=== PATIENT | female | born 1930 | race Caucasian/White ===

== ENCOUNTER → 2016-12-30 | Outpatient (CLI) | payer MEDICARE, OTHER ==
[2016-10-02 12:03] VITALS: BP 160/68
[~2016-12-30] MED LIST: ALBU18HF IH; AMIT10TA PO; AZIT250T6 PO; CHOL4POW2 PO; CLON0.5T PO; CYCL1DRO EACHEYE; CYCL5TAB PO; DOCU-27 PO; HYDR-2680 PO; HYDR-2762 PO; IPRA3AMP NEB; MINE454C6 TP; MOME15CR13 TP; OLAN2.5T3 PO; PRED-220 PO; SERT25TA PO; TRAZ50TA15 PO
--- NOTE | 2016-12-30 17:27 | RAD ---
5 view lumbar spine radiographs 12/30/2016 Clinical history: Low back pain for 2 weeks. AP, 2 lateral and bilateral oblique digital radiographs of lumbar spine were obtained. There is diffuse osteopenia the visualized bony structures. Surgical clips are seen within the right upper quadrant of the abdomen consistent with a cholecystectomy. Minimal S shaped curvature of the thoracolumbar spine is seen. Degenerative changes are seen along the lower thoracic and throughout the lumbar disc spaces consisting of vertebral endplate sclerosis and minimal to mild anterior vertebral body osteophyte formation. Degenerative changes are seen involving the facet joints of the mid and lower lumbar spine. No acute fracture or subluxation is seen. Atherosclerotic calcification of the abdominal aorta is noted. Impression: Degenerative changes are seen involving the lower thoracic and throughout the lumbar spine. No acute osseous abnormality is seen.
--- NOTE | 2016-12-30 17:46 | RAD ---
Three-view cervical spine radiographs 12/30/2016 Clinical history: Neck pain for 2 weeks. AP, lateral, swimmer's lateral and AP open mouth odontoid radiographs of the cervical spine were obtained. There is diffuse osteopenia the visualized bony structures. Straightening of the normal cervical lordosis is seen. Degenerative changes consisting of vertebral endplate sclerosis and mild to moderate anterior vertebral body osteophyte formation is seen throughout the cervical disc spaces. Degenerative changes are seen involving the uncovertebral and facet joints throughout the cervical disc spaces. No fracture or subluxation is seen. No prevertebral soft tissue swelling is noted. Impression: Degenerative changes are seen throughout the cervical spine as outlined above. No acute osseous abnormality is seen.
== END | disposition home or self-care (01) ==
LOC: DXRADRC 14:45
PROVIDERS: ATTEND Physician Assistant
DX: M47.896 Other spondylosis, lumbar region (principal); M47.812 Spondylosis without myelopathy or radiculopathy, cervical region; M85.80 Other specified disorders of bone density and structure, unspecified site; M25.78 Osteophyte, vertebrae; M47.894 Other spondylosis, thoracic region
CPT/HCPCS: 72040; 72110

== ENCOUNTER → 2017-05-06 | Outpatient (CLI) | payer MEDICARE, OTHER ==
[2016-10-02 12:03] VITALS: BP 160/68
[~2017-05-06] MED LIST changes: +DOCU-109 PO; -DOCU-27 PO
--- NOTE | 2017-05-06 16:23 | RAD ---
Bilateral lower extremity arterial ultrasound with STU measurements, 05/06/2017: History: Cold feet, claudication Duplex evaluation of the major arteries in both lower extremities was performed including grayscale, color-flow and spectral Doppler analysis. There are mild scattered atherosclerotic plaques. On the right, there are triphasic Doppler waveforms at the common femoral, superficial femoral and popliteal artery levels. No significant velocity acceleration is seen in those regions to suggest high-grade stenosis. Patent posterior tibial, peroneal and anterior tibial arteries are present in the right lower leg demonstrating biphasic and triphasic Doppler waveforms. The right dorsalis pedis artery demonstrates a good biphasic Doppler waveform. A normal resting STU measurement of 1.03 was obtained on the right. On the left, there are biphasic Doppler waveforms in the common femoral, superficial femoral and popliteal arteries. No significant velocity acceleration is seen through these regions to suggest significant stenosis. Biphasic Doppler waveforms are evident in the left posterior tibial, peroneal, anterior tibial and dorsalis pedis arteries. A normal resting STU measurement of 1.11 was obtained on the left. IMPRESSION: 1. Mild scattered atherosclerotic plaquing without evidence of significant arterial occlusive disease in either lower extremity. 2. Normal bilateral resting STU measurements.
== END | disposition home or self-care (01) ==
LOC: US 12:54
PROVIDERS: ATTEND Physician Assistant
DX: M79.661 Pain in right lower leg (principal); M79.662 Pain in left lower leg; I70.0 Atherosclerosis of aorta
CPT/HCPCS: 93922; 93923

== ENCOUNTER 2017-12-16 16:33 | Inpatient (IN) | payer MEDICARE, OTHER ==
[~2017-12-16] VITALS: Ht 162.6 cm; Wt 55.5 kg
[~2017-12-16 16:33] MED LIST changes: +AMIT50TA PO; +ENOX40DI SQ; +FERR325T14 PO; +GABA-586 PO; +HYDR-963 PO; +LACT1CAP21 PO; +POLY17PO5 PO; +QUET200T4 PO; +TEMA15CA6 PO; +VANC1PLA15 IV
--- NOTE | 2017-12-16 17:12 | NUR ---
Swing bed admission note: PT [facility] for IVAB r/t pneumonia, PT/OT strengthening for weakness and weight loss. See completed assessment per flow sheet PT depressed and is isolated to room, pt states that she just feels 'bad' Pt has lower back pain, Kpad at bedside and PRN pain medications Respiratory- home oxygen 2L NC Skin- friable and bruised ADL- Patient requires stand by assistance with toileting and uses walker for ADL. PT is too weak to dress self at this time and refused PT/OT as inpatient today and will resume tomorrow as skilled patient. PT/OT notified of orders Desiree Gutierrez [employer] CMSRN SD-
[2017-12-16] MEDS: QUEtiapine 50 MG TABLET. PO SCH ×2 (17:30→20:11)
[2017-12-16] MEDS ORDERED: PIPERACILLIN/TAZOBACTAM 3.375 GM in IV NORMAL SALINE 50ML 50 ML IV SCH (18:00)
[2017-12-16 19:03] VITALS: BP 89/60
[2017-12-16] MEDS: cycloSPORINE 0.05% OPTH 1 DROP DROPERETTE OU SCH (20:09)
[2017-12-16] MEDS: CELECOXIB 100 MG CAPSULE PO SCH (20:11)
[2017-12-16] MEDS: GABAPENTIN 300 MG CAPSULE. PO SCH (20:11)
[2017-12-16] MEDS: VANCOMYCIN 1 GM in IV NORMAL SALINE 250ML 250 ML IV SCH (20:11)
[2017-12-16] MEDS: LACTOBACILLUS RHAMNOSUS GG 1 CAPSULE. PO SCH (20:11)
[2017-12-16] MEDS: TEMAZEPAM 15 MG CAPSULE PO SCH (20:11)
[2017-12-16 20:28] VITALS: BP 120/51
[2017-12-16] MEDS ORDERED: OLANZapine 5 MG TABLET PO PRN (21:00)
[2017-12-16] MEDS: IPRATRPIUM/ALBUTEROL 0.5/2.5MG 3 ML NEBU. NEB SCH (22:35)
[2017-12-17] MEDS: PIPERACILLIN/TAZOBACTAM 3.375 GM in IV NORMAL SALINE 50ML 50 ML IV SCH ×4 (02:27→19:51)
--- NOTE | 2017-12-17 04:37 | NUR ---
Swing Bed Nursing Note Patient Handbook for [facility] given to patient. Nursing Problem: Patient admitted to Swing Bed Unit for IV antibiotics r/t pneumonia, PT/OT strengthening for weakness and weight loss. Pt lives at home alone, family is involved. Cognitive/Behavioral: Pt is A/Ox3. Pt sitting propped up in bed with daughter at bedside. Flat affect, depressed. States, "I still just feel bad." Cooperative with all meds and cares. Pain: Pt c/o joint and lower back pain. Kpad in place to lower back. Received new scheduled Celebrex with HS meds for arthritis pain. Pt much more comfortable. Able to rest through noc. Respiratory Status: Lung sounds diminished, right side coarse. Non-prod cough. Pt is on 2-3L O2 via NC continuously. Pt wears home O2. SOA with exertion. HOB is elevated. Duonebs QID. Skin: Thin, fragile/friable. Bruising to extremities. Coccyx intact. Bowel/Bladder Continence: Pt is continent of bowel and bladder. LBM 12/16. Has had loose stools. ADL Functional Status: Pt requires standby assistance with toileting and uses walker for ADL. Pt is too weak to dress self at this time. Feeds self, tolerated HS snack well. Able to take meds whole, one at a time.
[2017-12-17 05:49] VITALS: BP 113/50
[2017-12-17] MEDS: IPRATRPIUM/ALBUTEROL 0.5/2.5MG 3 ML NEBU. NEB SCH ×4 (05:49→21:16)
[2017-12-17 06:03] LABS: BASO # 0.1 x10^3/uL (0.0-0.2); BASO % 1 % (0-3); EOS # 0.3 x10^3/uL (0.0-0.7); EOS % 2 % (0-3); HEMATOCRIT 30.8 % (36.0-47.0); HEMOGLOBIN 10.4 g/dL (12.0-15.5); LYMPH # 2.1 x10^3/uL (1.0-4.8); LYMPH % 15 % (24-48); MEAN CORPUSCULAR HEMOGLOBIN 32 pg (25-35); MEAN CORPUSCULAR HGB CONC 34 g/dL (31-37); MEAN CORPUSCULAR VOLUME 94 fL (79-100); MONO # 1.2 x10^3/uL (0.0-1.1); MONO % 9 % (0-9); NEUT # 10.3 x10^3uL (1.8-7.7); NEUT % 74 % (31-73); PLATELET COUNT 612 x10^3/uL (140-400); RED BLOOD COUNT 3.28 x10^6/uL (3.50-5.40)
[2017-12-17 06:19] LABS: CALCIUM 8.8 mg/dL (8.5-10.1); CREATININE 0.8 mg/dL (0.6-1.0); GFR 68.2; POTASSIUM 4.6 mmol/L (3.5-5.1)
[2017-12-17] MEDS ORDERED: VANCOMYCIN IV SCH (09:00)
[2017-12-17] MEDS ORDERED: POLYETHYLENE GLYCOL 3350 17 GM PACKET. PO SCH (09:00)
[2017-12-17] MEDS ORDERED: SOD CHLORIDE IV SCH (09:00)
[2017-12-17] MEDS ORDERED: AZITHROMYCIN 250 MG TABLET. PO SCH (09:00)
[2017-12-17 09:06] LABS: % BANDS 3 % (0-9); % EOS 1 % (0-5); % LYMPHS 30 % (24-48); % METAS 2 % (0-0); % MONOS 7 % (0-10); % SEGS 54 % (35-66); PLATELET CLUMP PRESENT; PLT ESTIMATE INCREASED (ADEQUATE)
[2017-12-17 09:07] LABS: POLYCHROMASIA SLIGHT; TOXIC GRANULATION SLIGHT
[2017-12-17] MEDS: cycloSPORINE 0.05% OPTH 1 DROP DROPERETTE OU SCH ×2 (09:46→21:07)
[2017-12-17] MEDS: LACTOBACILLUS RHAMNOSUS GG 1 CAPSULE. PO SCH ×2 (09:46→21:06)
[2017-12-17] MEDS: GABAPENTIN 300 MG CAPSULE. PO SCH ×3 (09:46→21:06)
[2017-12-17] MEDS: CELECOXIB 100 MG CAPSULE PO SCH ×2 (09:46→17:36)
[2017-12-17] MEDS: FERROUS SULFATE 325 MG TABLET. PO SCH (09:46)
[2017-12-17] MEDS: ENOXAPARIN 40 MG/0.4 ML DISP.SYRIN. SQ SCH (09:47)
[2017-12-17] MEDS: HYDROcodone/APAP 7.5/325MG 1 TAB TABLET PO PRN ×2 (13:50→19:51)
--- NOTE | 2017-12-17 15:42 | NUR ---
Swing Bed Nursing Note Patient Handbook for Assisted given to patient. Nursing Problem: Patient admitted to [facility] for PT/OT for generalized strengthening subsequent to pneumonia. Cognitive/Behavioral: Patient is A/O x4. Patient is pleasant and cooperative with all cares. Patient appears to be somewhat depressed. Psych consult with Dr. Maya ordered. Pain: Patient is experiencing great pain this shift. Lortab administered and was ineffective. Fentanyl administered with some improvement. Respiratory Status: Patient on 2L O2 continuous. Skin: Patient's coccyx intact as is all other skin. Skin is thin and friable. Bowel/Bladder Continence: Patient is continent of bowel and bladder. ADL Functional Status: Patient eats and moves in bed independently with set-up help only. Patient requires one person assist with all other ADLs.
[2017-12-17 18:15] VITALS: BP 108/66
--- NOTE | 2017-12-17 19:30 | NUR ---
Swing Bed Nursing Note Patient Handbook for [facility] given to patient. Nursing Problem: Patient admitted to Swing Bed Unit for IV antibiotics r/t pneumonia, PT/OT strengthening for weakness and weight loss. Pt lives at home alone, family is involved. Cognitive/Behavioral: Pt is A/Ox3. Pt sitting propped up in bed with daughter at bedside. Cooperative with all meds and cares. Pain: Pt c/o joint and lower back pain. Kpad in place to lower back. Given PRN Lortab. Pt much more comfortable. Able to rest through noc. Respiratory Status: Lung sounds diminished, right side coarse. Non-prod cough. Pt is on 2 O2 via NC continuously. Pt wears home O2. SOA with exertion. HOB is elevated. Duonebs QID. Skin: Thin, fragile/friable. Bruising to extremities. Coccyx intact. Bowel/Bladder Continence: Pt is continent of bowel and bladder. LBM 12/17. Has had loose stools. ADL Functional Status: Pt requires standby assistance with toileting and uses walker for ADL. Pt is too weak to dress self at this time. Feeds self, tolerated HS snack well. Able to take meds whole, one at a time.
[2017-12-17] MEDS: QUEtiapine 50 MG TABLET. PO SCH (21:07)
[2017-12-17] MEDS: TEMAZEPAM 15 MG CAPSULE PO SCH (21:07)
[2017-12-17 21:10] LABS: VANC TR 10.6 mcg/mL (10.0-20.0)
[2017-12-17] MEDS: VANCOMYCIN 1 GM in IV NORMAL SALINE 250ML 250 ML IV SCH (21:18)
[2017-12-17] MEDS ORDERED: VANCOMYCIN 1 GM in IV NORMAL SALINE 250ML 250 ML IV SCH (21:30)
[2017-12-17] MEDS: VANCOMYCIN PER PHARMACY MC PRN (21:36)
--- NOTE | 2017-12-17 21:36 | NUR ---
Pharmacy Vancomycin Dosing Note S:Consulted to monitor and dose vancomycin started 12/15/17. O:EDGARD ORTIZ is a 87 year old F with Pneumonia . Height: 5 feet, 4 inches Weight: 56.274401 kg [place] Body Weight: Adjusted Body Weight: Dosing Weight: Actual Other Antibiotics: ZOSYN 3.375GM Q6HRS LABS: Last BUN: 9 Last Creatinine: 0.8 Creatinine Clearance: Last WBC: 14 Last Platelets: 612 Tmax (past 24 hours): Microbiology: I/O: Drug Levels: Last Trough level: 10.6 on 12/17/17 at 2030 Last dose given 12/17/17 at 2117 Vancomycin Dosing: Loading Dose: 1500 mg x1 Dosing Weight: Actual Target Trough: 15-20 A: Based on: P: 1. Change to Vancomycin 1000 mg IV q12h from q24hrs 2. Follow up Trough level on 12/18/17 at 2030 3. Pharmacy will continue to monitor, follow and adjust therapy as needed. JOAN DÍAZ [facility], 12/17/17 [id number]
[2017-12-18] MEDS: PIPERACILLIN/TAZOBACTAM 3.375 GM in IV NORMAL SALINE 50ML 50 ML IV SCH ×4 (01:46→19:22)
[2017-12-18] MEDS: HYDROcodone/APAP 7.5/325MG 1 TAB TABLET PO PRN ×3 (01:55→19:21)
[2017-12-18] MEDS: IPRATRPIUM/ALBUTEROL 0.5/2.5MG 3 ML NEBU. NEB SCH ×4 (05:52→20:15)
[2017-12-18 06:00] VITALS: BP 90/54
[2017-12-18] MEDS: CELECOXIB 100 MG CAPSULE PO SCH ×2 (08:32→17:26)
[2017-12-18] MEDS: cycloSPORINE 0.05% OPTH 1 DROP DROPERETTE OU SCH ×2 (08:32→19:21)
[2017-12-18] MEDS: GABAPENTIN 300 MG CAPSULE. PO SCH ×3 (08:32→19:21)
[2017-12-18] MEDS: LACTOBACILLUS RHAMNOSUS GG 1 CAPSULE. PO SCH ×2 (08:32→19:21)
[2017-12-18] MEDS: FERROUS SULFATE 325 MG TABLET. PO SCH (08:32)
[2017-12-18] MEDS: POLYETHYLENE GLYCOL 3350 17 GM PACKET. PO SCH (08:37)
[2017-12-18] MEDS: ENOXAPARIN 40 MG/0.4 ML DISP.SYRIN. SQ SCH (08:40)
[2017-12-18] MEDS: VANCOMYCIN 1 GM in IV NORMAL SALINE 250ML 250 ML IV SCH ×2 (10:37→20:55)
--- NOTE | 2017-12-18 15:55 | PDOC ---
Exam Note: Maximilian Note: Please also refer to the separate dictated note~for this date of service dictated separately.~Patient seen individually. Discussed the patient with Nursing staff reviewed the chart.~Reviewed interim history and current functioning. Reviewed vital signs,~Labs/ Radiology~and current medications noted below. Continue current treatment with the changes noted in the dictated addendum note. This is a late entry for date of service Dec 17, 2017 Assessment: Vital Signs: VS - Last 72 Hours, by Label Date Time Temp Pulse Resp B/P (MAP) Pulse Ox O2 Delivery O2 Flow Rate FiO2 12/18/17 13:53 98 Nasal Cannula 2.0 12/18/17 12:40 98 Nasal Cannula 2.0 12/18/17 10:51 98 Nasal Cannula 2.0 12/18/17 08:00 Nasal Cannula 2.0 12/18/17 06:00 97.3 71 18 90/54 (66) 99 Nasal Cannula 3.0 12/18/17 05:54 95 Nasal Cannula 2.0 12/18/17 01:55 18 Nasal Cannula 12/17/17 23:10 18 Nasal Cannula 2.0 12/17/17 22:23 22 Nasal Cannula 12/17/17 21:08 18 12/17/17 20:24 97 Nasal Cannula 2.0 12/17/17 19:51 20 Nasal Cannula 2.0 12/17/17 19:30 Nasal Cannula 2.0 12/17/17 18:15 97.4 89 20 108/66 (80) 97 Nasal Cannula 2.0 12/17/17 16:42 95 Nasal Cannula 2.0 12/17/17 11:37 100 Nasal Cannula 2.0 12/17/17 08:00 Nasal Cannula 3.0 12/17/17 05:49 97.7 87 18 113/50 (71) 99 Nasal Cannula 2.0 12/17/17 05:30 94 Nasal Cannula 2.5 12/16/17 20:40 96 Nasal Cannula 2.5 12/16/17 20:28 88 120/51 (74) 12/16/17 20:00 Nasal Cannula 3.0 12/16/17 19:03 98.1 93 21 89/60 (70) 97 Nasal Cannula 2.0 12/16/17 18:28 Nasal Cannula Vital Signs Date Time Temp Pulse Resp B/P (MAP) Pulse Ox O2 Delivery O2 Flow Rate FiO2 12/18/17 13:53 98 Nasal Cannula 2.0 12/18/17 06:00 97.3 71 18 90/54 (66) I&O Intake and Output 12/18/17 07:00 Intake Total 1720 ml Balance 1720 ml Intake Oral 1420 ml IV Total 300 ml # Voids 6 # Bowel Movements 1 Labs: Laboratory Tests Test 12/17/17 20:35 Vancomycin Level Trough 10.6 mcg/mL (10.0-20.0) Vancomycin Last Dose Date 12/16/17 Vancomycin Last Dose Time 2100 Current Medications: Meds: Current Medications Azithromycin (Zithromax) 500 mg DAILY PO ; Start 12/17/17 at 09:00; Status Cancel Cyclosporine (Restasis) 1 drop BID OU Last administered on 12/18/17 08:32; Start 12/16/17 at 21:00 Enoxaparin Sodium (Lovenox) 40 mg DAILY SQ Last administered on 12/18/17 08:40 ; Start 12/17/17 at 09:00 Ferrous Sulfate (Feosol) 325 mg DAILY PO Last administered on 12/18/17 08:32; Start 12/17/17 at 09:00 Gabapentin (Neurontin) 300 mg TID PO Last administered on 12/18/17 13:46; Start 12/16/17 at 21:00 Acetaminophen/ Hydrocodone Bitart (Lortab 7.5/325) 1 tab Q6HRS PRN PO PAIN Last administered on 12/18/17 12:40; Start 12/16/17 at 17:15 Albuterol/ Ipratropium (Duoneb) 3 ml QID NEB Last administered on 12/18/17at 10: 51; Start 12/16/17 at 21:00 Olanzapine (ZyPREXA) 5 mg PRN QHS PRN PO PSYCHOSIS; Start 12/16/17 at 21:00 Polyethylene Glycol (miraLAX) 17 gm DAILY PO ; Start 12/17/17 at 09:00; Stop at 09:00; Status DC Temazepam (Restoril) 15 mg QHS PO Last administered on 12/17/17 21:07; Start 12/16/17 at 21:00 Lactobacillus Rhamnosus (Culturelle) 1 cap BID PO Last administered on 08:32; Start 12/16/17 at 21:00 Quetiapine Fumarate (SEROquel) 50 mg QHS PO Last administered on 12/17/17 21: 07; Start 12/16/17 at 17:30 Non-Formulary Medication (Vancomycin/0.9 % Sod Chloride (Vanco 1 Gram/150 ml-0.9 % NaCl)) 1 gm DAILY IV ; Start 12/17/17 at 09:00; Status UNV Vancomycin HCl 1 gm/Sodium Chloride 250 ml @ 250 mls/hr Q24H IV Last administered on 12/17/17 21:18; Start 12/16/17 at 21:00; Stop 12/17/17 at 21:22 ; Status DC Vancomycin HCl (Vanco Per Pharmacy) 1 each PRN DAILY PRN MC SEE COMMENTS Last administered on 12/17/17at 21:36; Start 12/16/17 at 17:30 Fentanyl Citrate (Fentanyl 2ml Vial) 50 mcg PRN Q2HR PRN IV PAIN; Start at 17:30 Fentanyl Citrate (Fentanyl 2ml Vial) 25 mcg PRN Q2HR PRN IV pain Last administered on 12/17/17at 22:23; Start 12/16/17 at 17:45 Polyethylene Glycol (miraLAX) 17 gm Q48H PO Last administered on 12/18/17 08: 37; Start 12/18/17 at 09:00 Piperacillin Sod/ Tazobactam Sod 3.375 gm/Sodium Chloride 50 ml @ 100 mls/hr Q6HRS IV Last administered on 12/16/17 18:00; Start 12/16/17 at 18:00; Stop at 20:50; Status DC Celecoxib (CeleBREX) 100 mg BIDWMEALS PO Last administered on 12/18/17 08:32; Start 12/16/17 at 20:00 Piperacillin Sod/ Tazobactam Sod 3.375 gm/Sodium Chloride 50 ml @ 100 mls/hr Q6H IV Last administered on 12/18/17at 13:47; Start 12/17/17 at 02:00 Vancomycin HCl (Vancomycin Trough Level) 1 each 1X ONCE MC Last administered on 12/17/17 20:30; Start 12/17/17 at 20:30; Stop 12/17/17 at 20:31; Status DC Vancomycin HCl 1 gm/Sodium Chloride 250 ml @ 250 mls/hr Q12H IV ; Start at 21:30; Stop 12/17/17 at 21:30; Status DC Vancomycin HCl 1 gm/Sodium Chloride 250 ml @ 250 mls/hr Q12H IV Last administered on 12/18/17at 10:37; Start 12/18/17 at 09:00 Vancomycin HCl (Vancomycin Trough Level) 1 each 1X ONCE MC ; Start 12/18/17 at 20:30; Stop 12/18/17 at 20:31 Active Scripts Active Duoneb 0.5-3(2.5) Mg/3 Ml (Albuterol/Ipratropium) 3 Ml Ampul.neb 3 Ml NEB QID Azithromycin Tablet (Azithromycin) 250 Mg Tablet 500 Mg PO DAILY Reported Vanco 1 Gram/150 ml-0.9% NaCl (Vancomycin/0.9 % Sod Chloride) 1 Gm/150 Ml Plast..bag 1 Gm IV DAILY Restoril (Temazepam) 15 Mg Capsule 1 Cap PO QHS Miralax (Polyethylene Glycol 3350) 17 Gm Powd.pack 1 Packet PO DAILY Culturelle (Lactobacillus Rhamnosus Gg) 1 Each Capsule 1 Each PO BID Ferrous Sulfate 325 Mg Tablet 1 Tab PO DAILY Lovenox (Enoxaparin Sodium) 40 Mg/0.4 Ml Disp.syrin 40 Mg SQ DAILY Restasis (Cyclosporine) 1 Each Droperette 1 Drop EACHEYE BID Gabapentin 300 Mg Capsule 300 Mg PO TID Seroquel (Quetiapine Fumarate) 200 Mg Tablet 2 Tab PO QHS Hydrocodone-Apap 7.5-325 (Hydrocodone Bit/Acetaminophen) 1 Each Tablet 1 Tab PO Q6HRS PRN Zyprexa (Olanzapine) 2.5 Mg Tablet 5 Tab PO QHS I have reviewed the current psychotropics carefully including drug interactions. Risk benefit ratio favors no change other than as noted in my dictated progress note. Diagnosis: Problems: (1) Major depressive disorder, recurrent episode (2) Anxiety disorder SOFÍA PARRA MD Dec 18, 2017 15:55
--- NOTE | 2017-12-18 16:25 | NUR ---
Swing Bed Nursing Note Nursing Problem: Patient admitted to Swing Bed Unit for IV antibiotics r/t pneumonia, PT/OT strengthening for weakness and weight loss. Pt lives at home alone, family is involved. Cognitive/Behavioral: Pt is A/Ox3. Cooperative with all meds and cares. Pain: Pt c/o joint and lower back pain. Given PRN Lortab. Pt much more comfortable. Able to rest through noc. Respiratory Status: Lung sounds diminished, right side coarse. Non-prod cough. Pt is on 2L O2 via NC continuously. Pt wears home O2. SOA with exertion. HOB is elevated. Duonebs QID. Skin: Thin, fragile/friable. Bruising to extremities. Coccyx intact. Bowel/Bladder Continence: Pt is continent of bowel and bladder. LBM 12/18. Has had loose stools. ADL Functional Status: Pt requires standby assistance with toileting and uses walker for ADL. Feeds self, tolerated HS snack well. Able to take meds whole, one at a time.
--- NOTE | 2017-12-18 17:33 | PDOC ---
Exam Note: Maximilian Note: Please also refer to the separate dictated note~for this date of service dictated separately.~Patient seen individually. Discussed the patient with Nursing staff reviewed the chart.~Reviewed interim history and current functioning. Reviewed vital signs,~Labs/ Radiology~and current medications noted below. Continue current treatment with the changes noted in the dictated addendum note Assessment: Vital Signs: Vital Signs Date Time Temp Pulse Resp B/P (MAP) Pulse Ox O2 Delivery O2 Flow Rate FiO2 12/18/17 16:37 99 Nasal Cannula 2.0 12/18/17 06:00 97.3 71 18 90/54 (66) I&O Intake and Output 12/18/17 07:00 Intake Total 1720 ml Balance 1720 ml Intake Oral 1420 ml IV Total 300 ml # Voids 6 # Bowel Movements 1 Labs: Laboratory Tests Test 12/17/17 20:35 Vancomycin Level Trough 10.6 mcg/mL (10.0-20.0) Vancomycin Last Dose Date 12/16/17 Vancomycin Last Dose Time 2100 Current Medications: Meds: Current Medications Azithromycin (Zithromax) 500 mg DAILY PO ; Start 12/17/17 at 09:00; Status Cancel Cyclosporine (Restasis) 1 drop BID OU Last administered on 12/18/17at 08:32; Start 12/16/17 at 21:00 Enoxaparin Sodium (Lovenox) 40 mg DAILY SQ Last administered on 12/18/17at 08:40 ; Start 12/17/17 at 09:00 Ferrous Sulfate (Feosol) 325 mg DAILY PO Last administered on 12/18/17at 08:32; Start 12/17/17 at 09:00 Gabapentin (Neurontin) 300 mg TID PO Last administered on 12/18/17at 13:46; Start 12/16/17 at 21:00 Acetaminophen/ Hydrocodone Bitart (Lortab 7.5/325) 1 tab Q6HRS PRN PO PAIN Last administered on 12/18/17 12:40; Start 12/16/17 at 17:15 Albuterol/ Ipratropium (Duoneb) 3 ml QID NEB Last administered on 12/18/17at 16: 37; Start 12/16/17 at 21:00 Olanzapine (ZyPREXA) 5 mg PRN QHS PRN PO PSYCHOSIS; Start 12/16/17 at 21:00 Polyethylene Glycol (miraLAX) 17 gm DAILY PO ; Start 12/17/17 at 09:00; Stop at 09:00; Status DC Temazepam (Restoril) 15 mg QHS PO Last administered on 12/17/17at 21:07; Start 12/16/17 at 21:00 Lactobacillus Rhamnosus (Culturelle) 1 cap BID PO Last administered on at 08:32; Start 12/16/17 at 21:00 Quetiapine Fumarate (SEROquel) 50 mg QHS PO Last administered on 12/17/17at 21: 07; Start 12/16/17 at 17:30 Non-Formulary Medication (Vancomycin/0.9 % Sod Chloride (Vanco 1 Gram/150 ml-0.9 % NaCl)) 1 gm DAILY IV ; Start 12/17/17 at 09:00; Status UNV Vancomycin HCl 1 gm/Sodium Chloride 250 ml @ 250 mls/hr Q24H IV Last administered on 12/17/17at 21:18; Start 12/16/17 at 21:00; Stop 12/17/17 at 21:22 ; Status DC Vancomycin HCl (Vanco Per Pharmacy) 1 each PRN DAILY PRN MC SEE COMMENTS Last administered on 12/17/17at 21:36; Start 12/16/17 at 17:30 Fentanyl Citrate (Fentanyl 2ml Vial) 50 mcg PRN Q2HR PRN IV PAIN; Start at 17:30 Fentanyl Citrate (Fentanyl 2ml Vial) 25 mcg PRN Q2HR PRN IV pain Last administered on 12/17/17at 22:23; Start 12/16/17 at 17:45 Polyethylene Glycol (miraLAX) 17 gm Q48H PO Last administered on 12/18/17at 08: 37; Start 12/18/17 at 09:00 Piperacillin Sod/ Tazobactam Sod 3.375 gm/Sodium Chloride 50 ml @ 100 mls/hr Q6HRS IV Last administered on 12/16/17at 18:00; Start 12/16/17 at 18:00; Stop at 20:50; Status DC Celecoxib (CeleBREX) 100 mg BIDWMEALS PO Last administered on 12/18/17at 17:26; Start 12/16/17 at 20:00 Piperacillin Sod/ Tazobactam Sod 3.375 gm/Sodium Chloride 50 ml @ 100 mls/hr Q6H IV Last administered on 12/18/17at 13:47; Start 12/17/17 at 02:00 Vancomycin HCl (Vancomycin Trough Level) 1 each 1X ONCE MC Last administered on 12/17/17at 20:30; Start 12/17/17 at 20:30; Stop 12/17/17 at 20:31; Status DC Vancomycin HCl 1 gm/Sodium Chloride 250 ml @ 250 mls/hr Q12H IV ; Start at 21:30; Stop 12/17/17 at 21:30; Status DC Vancomycin HCl 1 gm/Sodium Chloride 250 ml @ 250 mls/hr Q12H IV Last administered on 12/18/17at 10:37; Start 12/18/17 at 09:00 Vancomycin HCl (Vancomycin Trough Level) 1 each 1X ONCE MC ; Start 12/18/17 at 20:30; Stop 12/18/17 at 20:31 Duloxetine HCl (Cymbalta) 30 mg DAILY PO ; Start 12/19/17 at 09:00 Active Scripts Active Duoneb 0.5-3(2.5) Mg/3 Ml (Albuterol/Ipratropium) 3 Ml Ampul.neb 3 Ml NEB QID Azithromycin Tablet (Azithromycin) 250 Mg Tablet 500 Mg PO DAILY Reported Vanco 1 Gram/150 ml-0.9% NaCl (Vancomycin/0.9 % Sod Chloride) 1 Gm/150 Ml Plast..bag 1 Gm IV DAILY Restoril (Temazepam) 15 Mg Capsule 1 Cap PO QHS Miralax (Polyethylene Glycol 3350) 17 Gm Powd.pack 1 Packet PO DAILY Culturelle (Lactobacillus Rhamnosus Gg) 1 Each Capsule 1 Each PO BID Ferrous Sulfate 325 Mg Tablet 1 Tab PO DAILY Lovenox (Enoxaparin Sodium) 40 Mg/0.4 Ml Disp.syrin 40 Mg SQ DAILY Restasis (Cyclosporine) 1 Each Droperette 1 Drop EACHEYE BID Gabapentin 300 Mg Capsule 300 Mg PO TID Seroquel (Quetiapine Fumarate) 200 Mg Tablet 2 Tab PO QHS Hydrocodone-Apap 7.5-325 (Hydrocodone Bit/Acetaminophen) 1 Each Tablet 1 Tab PO Q6HRS PRN Zyprexa (Olanzapine) 2.5 Mg Tablet 5 Tab PO QHS I have reviewed the current psychotropics carefully including drug interactions. Risk benefit ratio favors no change other than as noted in my dictated progress note. Diagnosis: Problems: (1) Major depressive disorder, recurrent episode (2) Anxiety disorder SOFÍA PARRA MD Dec 18, 2017 17:33
[2017-12-18 18:28] VITALS: BP 102/65
[2017-12-18] MEDS: QUEtiapine 50 MG TABLET. PO SCH (19:21)
[2017-12-18] MEDS: TEMAZEPAM 15 MG CAPSULE PO SCH (19:21)
[2017-12-18 20:47] LABS: VANC TR 21.8 mcg/mL (10.0-20.0)
[2017-12-18] MEDS ORDERED: VANCOMYCIN 750 MG in IV NORMAL SALINE 250ML 250 ML IV SCH (21:00)
[2017-12-18] MEDS: VANCOMYCIN PER PHARMACY MC PRN (21:16)
--- NOTE | 2017-12-18 21:17 | NUR ---
Pharmacy Vancomycin Dosing Note S:Consulted to monitor and dose vancomycin started 12/15/17. O:EDGARD ORTIZ is a 87 year old F with Pneumonia . Height: 5 feet, 4 inches Weight: 55.430414 kg [place] Body Weight: Adjusted Body Weight: Dosing Weight: Actual Other Antibiotics: ZOSYN 3.375G Q6HRS LABS: Last BUN: 9 Last Creatinine: 0.8 Creatinine Clearance: Last WBC: 14 Last Platelets: 612 Tmax (past 24 hours): Microbiology: I/O: Drug Levels: Last Trough level: 21.8 on 12/18/17 at 2030 Last dose given 12/18/17 at 0900 Vancomycin Dosing: Loading Dose: 1500 mg x1 Dosing Weight: Actual Target Trough: 15-20 A: Based on: P: 1. Change to Vancomycin 750 mg IV q12h from 1 gram q12hr for borderline supratherapeutic trough 2. Follow up Trough level on 12/19/17 at 2030 3. Pharmacy will continue to monitor, follow and adjust therapy as needed. JOAN DÍAZ [facility], 12/18/17 [id number]
[2017-12-18] MEDS: traZODone 50 MG TABLET. PO PRN ×2 (21:59→23:58)
[2017-12-18] MEDS: AMOXICILLIN/K CLAV 875/125MG TABLET. PO SCH (22:02)
--- NOTE | 2017-12-18 22:25 | NUR ---
Nursing Note: After many attempts to put in an IV we were not successful. Called Dr. Vides,new orders noted.
--- NOTE | 2017-12-18 23:03 | NUR ---
Swing Bed Nursing Note Nursing Problem: Patient admitted to Swing Bed Unit for antibiotics r/t pneumonia, PT/OT strengthening for weakness and weight loss. Pt lives at home alone, family is involved. Cognitive/Behavioral: Pt is A/Ox3. Cooperative with all meds and cares. Patient is a little down this evening. Dr. Maya in to see patient. Pain: Pt c/o joint and lower back pain. Given PRN Lortab. Pt much more comfortable. Able to rest. Respiratory Status: Lung sounds diminished, right side coarse. Non-prod cough. Pt is on 2L O2 via NC continuously. Pt wears home O2. SOA with exertion. HOB is elevated. Duonebs QID. Skin: Thin, fragile/friable. Bruising to extremities. Coccyx intact. Bowel/Bladder Continence: Pt is continent of bowel and bladder. LBM 12/18. Has had loose stools. ADL Functional Status: Pt requires standby assistance with toileting and uses walker for ADL. Feeds self, tolerated refused HS snack. Able to take meds whole, one at a time.
--- NOTE | 2017-12-19 03:59 | CONS ---
DATE OF CONSULTATION: 12/17/2017 This late entry, date of service 12/17/2017, covers elements not covered in my initial note 12/17/2017. I met with the patient evening of 12/17/2017 and met with her [id number], discussed with nursing staff. This note covers elements not covered in my initial note of 12/17/2017. IDENTIFYING DATA: The patient is an 87-year-old female seen in the care home facility, [facility], for a psychiatric consult requested by Dr. Vides on account of the patient's depression. CHIEF COMPLAINT: "Yes, I have been depressed. I am tired all the time. Nothing matters. No, I would never try to hurt myself. I live at [facility]." The patient responded after I asked her regarding the referral question and was trying to get a sense of her living arrangements. HISTORY OF PRESENT ILLNESS: The patient relates symptoms of depression, low mood, some sleep and appetite changes, worsening for the past several weeks. She lives in an independent apartment near the [facility], but her family is closely involved in her care. Despite her worsening symptoms of depression, she has been able to function reasonably, but then came down with pneumonia for which she was hospitalized. Since then, her mood symptoms have worsened further. She denies any psychotic symptoms, suicidal or homicidal ideation, but feels hopeless, helpless, worthless, feels nothing will get better. Cognitively, she is reasonably intact. No clear history of bipolar disorder. PAST PSYCHIATRIC HISTORY: As above. MEDICAL HISTORY: Status post pneumonia, COPD, anemia, history of weight loss, some elevation of liver enzymes, malnutrition, low back pain. PAST SURGICAL HISTORY: Cholecystectomy, hysterectomy, carpal tunnel surgery. ALLERGIES: Negative. FAMILY HISTORY: Positive for colon, lung and breast cancer. CURRENT PSYCHOTROPICS: Seroquel 50 mg at bedtime, temazepam 15 mg at bedtime, Zyprexa p.r.n. SOCIAL HISTORY: She lives in the independent apartment as noted above, does not drive, but her family assists with her groceries. 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 She had 4 sons, but her older son is . Rest of the family is closely involved in her care. MENTAL STATUS EXAM: The patient was seen individually evening of 12/17/2017. She is reasonably oriented. Speech is coherent, has some latency. Abstraction fair, computation somewhat impaired, language function intact. Mood is depressed, anxious. Affect is mood congruent. No psychotic symptoms, suicidal or homicidal ideation. Intellect average. Insight good. Judgment intact to standard questioning. REVIEW OF SYSTEMS: Positive for the back pain, impaired ambulation. No CV, , pulmonary, eye system symptoms on review. IMPRESSION: Major depressive disorder, recurrent; anxiety disorder, unspecified; rest as noted above. PLAN: The patient does present with mood symptoms. Admits to feeling hopeless and worthless. No suicidal ideation, no psychotic symptoms. We will go ahead and start her on Cymbalta 30 mg a day, which might help her pain symptoms as well as the mood, anxiety symptoms. For now, continue Seroquel, but we may gradually reduce this given the risk/benefit ratio. Dr. Vides, thank you for the opportunity to participate in your patient's care. We will follow with you. MAN Tani PARRA MD DR: MARILYN/jack JOB#: [id number] / [id number]
[2017-12-19] MEDS: IPRATRPIUM/ALBUTEROL 0.5/2.5MG 3 ML NEBU. NEB SCH ×4 (05:39→20:33)
[2017-12-19 05:54] VITALS: BP 100/54
[2017-12-19] MEDS: FERROUS SULFATE 325 MG TABLET. PO SCH (09:47)
[2017-12-19] MEDS: ENOXAPARIN 40 MG/0.4 ML DISP.SYRIN. SQ SCH (09:47)
[2017-12-19] MEDS: DULoxetine HCL 30 MG CAPSULE.DR PO SCH (09:47)
[2017-12-19] MEDS: GABAPENTIN 300 MG CAPSULE. PO SCH ×3 (09:47→19:56)
[2017-12-19] MEDS: AMOXICILLIN/K CLAV 875/125MG TABLET. PO SCH ×2 (09:47→19:56)
[2017-12-19] MEDS: LACTOBACILLUS RHAMNOSUS GG 1 CAPSULE. PO SCH ×2 (09:47→19:56)
[2017-12-19] MEDS: CELECOXIB 100 MG CAPSULE PO SCH ×2 (09:49→16:59)
[2017-12-19] MEDS: cycloSPORINE 0.05% OPTH 1 DROP DROPERETTE OU SCH ×2 (09:49→19:57)
[2017-12-19] MEDS: HYDROcodone/APAP 7.5/325MG 1 TAB TABLET PO PRN (15:00)
--- NOTE | 2017-12-19 16:52 | NUR ---
Swing Bed Nursing Note Nursing Problem: Patient admitted to Swing Bed Unit for IV antibiotics r/t pneumonia, PT/OT strengthening for weakness and weight loss. Pt lives at home alone, family is involved. Cognitive/Behavioral: Pt is A/Ox3. Cooperative with all meds and cares. Pain: Pt c/o joint and lower back pain. Given PRN Lortab. Pt much more comfortable. Able to rest through noc. Respiratory Status: Lung sounds diminished, right side coarse. Non-prod cough. Pt is on 2L O2 via NC continuously. Pt wears home O2. SOA with exertion. HOB is elevated. Duonebs QID. Skin: Thin, fragile/friable. Bruising to extremities. Coccyx intact. Bowel/Bladder Continence: Pt is continent of bowel and bladder. LBM 12/18. Has had loose stools. ADL Functional Status: Pt requires standby assistance with toileting and uses walker for ADL. Feeds self. Able to take meds whole, one at a time.
--- NOTE | 2017-12-19 18:15 | OP ---
DATE OF SURGERY: 12/18/2017 This is a late entry, 12/18/2017, covers the elements not covered in my initial note, 12/18/2017. SUBJECTIVE: I met with the patient evening of 12/18/2017, in her room. Overall, the patient states she is doing better. She is still depressed, withdrawn, but complains of insomnia. REVIEW OF SYSTEMS: Some shortness of breath, impaired ambulation. No CV, , GI system symptoms on review. MENTAL STATUS EXAM: Reasonably oriented. Speech coherent, abstraction fair, computation somewhat impaired, language function intact. Mood and affect somewhat dysphoric. No suicidal or homicidal ideation. LABORATORY DATA: Reviewed. IMPRESSION: Major depressive disorder, insomnia. PLAN: Continue Cymbalta at current dosage as mentioned in my initial note. Start trazodone 25 mg at bedtime, may repeat x 1 as needed insomnia, rest unchanged. MAN Tani PARRA MD DR: MARILYN/jack JOB#: [id number] / [id number]
[2017-12-19 18:30] VITALS: BP 102/51
[2017-12-19] MEDS: TEMAZEPAM 15 MG CAPSULE PO SCH (19:56)
[2017-12-19] MEDS: QUEtiapine 50 MG TABLET. PO SCH (19:56)
[2017-12-19] MEDS: traZODone 50 MG TABLET. PO PRN (21:58)
--- NOTE | 2017-12-19 22:05 | NUR ---
Swing Bed Nursing Note Patient Handbook for [facility] given to patient. Nursing Problem: Pt admitted to Swing Bed Unit for antibiotics r/t pneumonia, PT/OT strengthening for weakness and weight loss. Pt lives at home alone, family is involved. Cognitive/Behavioral: Pt is A/Ox3. Pt sitting propped up in chair doing a crossword book. Pt exactingly showed me all her Easter decoration around her room. Pt is cooperative with assessment and cares. Pain: Pt c/o mild joint and lower back pain. Pt had PRN Lortab just prior to start of shift. Kpad in place to lower back. Received new scheduled Celebrex with HS meds for arthritis pain. Respiratory Status: Lung sounds diminished, right side coarse. Non-prod cough. Pt is on 2-3L O2 via NC continuously. Pt wears home O2. SOA with exertion. HOB is elevated. Duonebs QID. Skin: Thin, fragile/friable. Bruising to extremities. Coccyx intact. Bowel/Bladder Continence: Pt is continent of bowel and bladder. LBM 12/19. Has had x2 semi-loose stools. ADL Functional Status: Pt requires standby assistance with toileting and uses walker for ADL. Pt was able to dress herself tonight with set up help only. Pt feeds self and tolerated HS snack well. Able to take medications whole, one at a time.
--- NOTE | 2017-12-19 22:41 | PDOC ---
Exam Note: Maximilian Note: Please also refer to the separate dictated note~for this date of service dictated separately.~Patient seen individually. Discussed the patient with Nursing staff reviewed the chart.~Reviewed interim history and current functioning. Reviewed vital signs,~Labs/ Radiology~and current medications noted below. Continue current treatment with the changes noted in the dictated addendum note Assessment: Vital Signs: Vital Signs Date Time Temp Pulse Resp B/P (MAP) Pulse Ox O2 Delivery O2 Flow Rate FiO2 12/19/17 20:35 98 Nasal Cannula 2.0 12/19/17 18:30 98.3 105 20 102/51 (68) I&O Intake and Output 12/19/17 07:00 Intake Total 1020 ml Balance 1020 ml Intake Oral 1020 ml # Voids 4 # Bowel Movements 2 Current Medications: Meds: Current Medications Azithromycin (Zithromax) 500 mg DAILY PO ; Start 12/17/17 at 09:00; Status Cancel Cyclosporine (Restasis) 1 drop BID OU Last administered on 12/19/17 19:57; Start 12/16/17 at 21:00 Enoxaparin Sodium (Lovenox) 40 mg DAILY SQ Last administered on 12/19/17 09:47 ; Start 12/17/17 at 09:00; Stop 12/19/17 at 12:56; Status DC Ferrous Sulfate (Feosol) 325 mg DAILY PO Last administered on 12/19/17at 09:47; Start 12/17/17 at 09:00 Gabapentin (Neurontin) 300 mg TID PO Last administered on 12/19/17 19:56; Start 12/16/17 at 21:00 Acetaminophen/ Hydrocodone Bitart (Lortab 7.5/325) 1 tab Q6HRS PRN PO PAIN Last administered on 12/19/17at 15:00; Start 12/16/17 at 17:15 Albuterol/ Ipratropium (Duoneb) 3 ml QID NEB Last administered on 12/19/17at 20: 33; Start 12/16/17 at 21:00 Olanzapine (ZyPREXA) 5 mg PRN QHS PRN PO PSYCHOSIS; Start 12/16/17 at 21:00 Polyethylene Glycol (miraLAX) 17 gm DAILY PO ; Start 12/17/17 at 09:00; Stop at 09:00; Status DC Temazepam (Restoril) 15 mg QHS PO Last administered on 12/19/17 19:56; Start 12/16/17 at 21:00 Lactobacillus Rhamnosus (Culturelle) 1 cap BID PO Last administered on 19:56; Start 12/16/17 at 21:00 Quetiapine Fumarate (SEROquel) 50 mg QHS PO Last administered on 12/19/17at 19: 56; Start 12/16/17 at 17:30 Non-Formulary Medication (Vancomycin/0.9 % Sod Chloride (Vanco 1 Gram/150 ml-0.9 % NaCl)) 1 gm DAILY IV ; Start 12/17/17 at 09:00; Status UNV Vancomycin HCl 1 gm/Sodium Chloride 250 ml @ 250 mls/hr Q24H IV Last administered on 12/17/17at 21:18; Start 12/16/17 at 21:00; Stop 12/17/17 at 21:22 ; Status DC Vancomycin HCl (Vanco Per Pharmacy) 1 each PRN DAILY PRN MC SEE COMMENTS Last administered on 12/18/17at 21:16; Start 12/16/17 at 17:30; Stop 12/19/17 at 07:20 ; Status DC Fentanyl Citrate (Fentanyl 2ml Vial) 50 mcg PRN Q2HR PRN IV PAIN; Start at 17:30 Fentanyl Citrate (Fentanyl 2ml Vial) 25 mcg PRN Q2HR PRN IV pain Last administered on 12/17/17at 22:23; Start 12/16/17 at 17:45 Polyethylene Glycol (miraLAX) 17 gm Q48H PO Last administered on 12/18/17at 08: 37; Start 12/18/17 at 09:00 Piperacillin Sod/ Tazobactam Sod 3.375 gm/Sodium Chloride 50 ml @ 100 mls/hr Q6HRS IV Last administered on 12/16/17at 18:00; Start 12/16/17 at 18:00; Stop at 20:50; Status DC Celecoxib (CeleBREX) 100 mg BIDWMEALS PO Last administered on 12/19/17at 16:59; Start 12/16/17 at 20:00 Piperacillin Sod/ Tazobactam Sod 3.375 gm/Sodium Chloride 50 ml @ 100 mls/hr Q6H IV Last administered on 12/18/17at 19:22; Start 12/17/17 at 02:00; Stop at 21:53; Status DC Vancomycin HCl (Vancomycin Trough Level) 1 each 1X ONCE MC Last administered on 12/17/17at 20:30; Start 12/17/17 at 20:30; Stop 12/17/17 at 20:31; Status DC Vancomycin HCl 1 gm/Sodium Chloride 250 ml @ 250 mls/hr Q12H IV ; Start at 21:30; Stop 12/17/17 at 21:30; Status DC Vancomycin HCl 1 gm/Sodium Chloride 250 ml @ 250 mls/hr Q12H IV Last administered on 12/18/17at 10:37; Start 12/18/17 at 09:00; Stop 12/18/17 at 20:56 ; Status DC Vancomycin HCl (Vancomycin Trough Level) 1 each 1X ONCE MC Last administered on 12/18/17at 20:03; Start 12/18/17 at 20:30; Stop 12/18/17 at 20:31; Status DC Duloxetine HCl (Cymbalta) 30 mg DAILY PO Last administered on 12/19/17at 09:47; Start 12/19/17 at 09:00 Trazodone HCl (Desyrel) 25 mg PRN QHS PRN PO INSOMNIA, MAY REPEAT X1 Last administered on 12/19/17at 21:58; Start 12/18/17 at 21:00 Vancomycin HCl 750 mg/Sodium Chloride 250 ml @ 250 mls/hr Q12H IV ; Start 12/18 at 21:00; Stop 12/18/17 at 21:53; Status DC Vancomycin HCl (Vancomycin Trough Level) 1 each 1X ONCE MC ; Start 12/19/17 at 20:30; Stop 12/19/17 at 20:30; Status DC Amoxicillin/ Clavulanate Potassium (Augmentin 875/ 125mg) 1 tab BID PO Last administered on 12/19/17at 19:56; Start 12/18/17 at 22:00 Active Scripts Active Duoneb 0.5-3(2.5) Mg/3 Ml (Albuterol/Ipratropium) 3 Ml Ampul.neb 3 Ml NEB QID Azithromycin Tablet (Azithromycin) 250 Mg Tablet 500 Mg PO DAILY Reported Vanco 1 Gram/150 ml-0.9% NaCl (Vancomycin/0.9 % Sod Chloride) 1 Gm/150 Ml Plast..bag 1 Gm IV DAILY Restoril (Temazepam) 15 Mg Capsule 1 Cap PO QHS Miralax (Polyethylene Glycol 3350) 17 Gm Powd.pack 1 Packet PO DAILY Culturelle (Lactobacillus Rhamnosus Gg) 1 Each Capsule 1 Each PO BID Ferrous Sulfate 325 Mg Tablet 1 Tab PO DAILY Lovenox (Enoxaparin Sodium) 40 Mg/0.4 Ml Disp.syrin 40 Mg SQ DAILY Restasis (Cyclosporine) 1 Each Droperette 1 Drop EACHEYE BID Gabapentin 300 Mg Capsule 300 Mg PO TID Seroquel (Quetiapine Fumarate) 200 Mg Tablet 2 Tab PO QHS Hydrocodone-Apap 7.5-325 (Hydrocodone Bit/Acetaminophen) 1 Each Tablet 1 Tab PO Q6HRS PRN Zyprexa (Olanzapine) 2.5 Mg Tablet 5 Tab PO QHS I have reviewed the current psychotropics carefully including drug interactions. Risk benefit ratio favors no change other than as noted in my dictated progress note. Diagnosis: Problems: (1) Anxiety disorder (2) Major depressive disorder, recurrent episode SOFÍA PARRA MD Dec 19, 2017 22:41
[2017-12-20] MEDS: IPRATRPIUM/ALBUTEROL 0.5/2.5MG 3 ML NEBU. NEB SCH ×5 (05:27→20:21)
[2017-12-20 06:05] VITALS: BP 101/58
[2017-12-20] MEDS: LACTOBACILLUS RHAMNOSUS GG 1 CAPSULE. PO SCH ×2 (08:02→21:15)
[2017-12-20] MEDS: GABAPENTIN 300 MG CAPSULE. PO SCH ×3 (08:02→21:15)
[2017-12-20] MEDS: DULoxetine HCL 30 MG CAPSULE.DR PO SCH (08:03)
[2017-12-20] MEDS: FERROUS SULFATE 325 MG TABLET. PO SCH (08:03)
[2017-12-20] MEDS: AMOXICILLIN/K CLAV 875/125MG TABLET. PO SCH ×2 (08:03→21:15)
[2017-12-20] MEDS: cycloSPORINE 0.05% OPTH 1 DROP DROPERETTE OU SCH ×2 (08:03→20:30)
[2017-12-20] MEDS: CELECOXIB 100 MG CAPSULE PO SCH ×2 (08:04→17:12)
[2017-12-20] MEDS: POLYETHYLENE GLYCOL 3350 17 GM PACKET. PO SCH (08:04)
[2017-12-20] MEDS: HYDROcodone/APAP 7.5/325MG 1 TAB TABLET PO PRN ×2 (11:25→20:36)
--- NOTE | 2017-12-20 15:28 | NUR ---
Swing Bed Nursing Note Patient Handbook for [facility] given to patient. Nursing Problem: Pt admitted to Swing Bed Unit for antibiotics r/t pneumonia, PT/OT strengthening for weakness and weight loss. Pt lives at home alone, family is involved. Cognitive/Behavioral: Pt is A/Ox3. Pt sitting propped up in chair watching TV. Pt exactingly showed me all her Easter decoration around her room. Pt is cooperative with assessment and cares. Pain: Pt c/o mild joint and lower back pain. Pt had PRN Lortab late morning. Respiratory Status: Lung sounds diminished, right side coarse. Non-prod cough. Pt is on 2-3L O2 via NC continuously. Pt wears home O2. SOA with exertion. HOB is elevated. Duonebs QID. Skin: Thin, fragile/friable. Bruising to extremities. Coccyx intact. Bowel/Bladder Continence: Pt is continent of bowel and bladder. LBM 4/1. ADL Functional Status: Pt requires standby assistance with toileting and uses walker for ADL. Pt was able to dress herself this morning with set up help only. Pt feeds self. Able to take medications whole, one at a time. Pt refuses walks and showering today stating, "I think I want to rest on this Thursday.".
--- NOTE | 2017-12-20 19:10 | NUR ---
Swing Bed Nursing Note Patient Handbook for [facility] given to patient. Nursing Problem: Pt admitted to Swing Bed Unit for antibiotics r/t pneumonia, PT/OT strengthening for weakness and weight loss. Pt lives at home alone, family is involved. Cognitive/Behavioral: Pt is A/Ox3. Pt sitting propped up in chair watching TV. Pt is talkative and interactive with staff. Pt is cooperative with assessment and cares. Pain: Pt c/o no pain at this time. Pt had PRN Lortab just prior to start of shift. Receiving new scheduled Celebrex with HS meds for arthritis pain. K-pad at bedside if needed. Respiratory Status: Lung sounds diminished. Non-prod cough. Pt is on 2-3L O2 via NC continuously. Pt wears home O2. SOA with exertion. HOB is elevated. Duonebs QID. Skin: Thin, fragile/friable. Bruising to extremities. Coccyx intact. Bowel/Bladder Continence: Pt is continent of bowel and bladder. LBM 4/1. Has had x2 semi-loose stools. ADL Functional Status: Pt requires standby assistance with toileting and uses walker for ADL. Pt was able to dress herself tonight with set up help only. Pt feeds self and tolerated HS snack well. Able to take medications whole, one at a time.
[2017-12-20 19:36] VITALS: BP 130/63
[2017-12-20] MEDS: TEMAZEPAM 15 MG CAPSULE PO SCH ×2 (20:30→21:15)
--- NOTE | 2017-12-20 20:34 | PDOC ---
Exam Note: Maximilian Note: Please also refer to the separate dictated note~for this date of service dictated separately.~Patient seen individually. Discussed the patient with Nursing staff reviewed the chart.~Reviewed interim history and current functioning. Reviewed vital signs,~Labs/ Radiology~and current medications noted below. Continue current treatment with the changes noted in the dictated addendum note Assessment: Vital Signs: Vital Signs Date Time Temp Pulse Resp B/P (MAP) Pulse Ox O2 Delivery O2 Flow Rate FiO2 12/20/17 20:24 96 Nasal Cannula 2.0 12/20/17 19:36 97.7 85 20 130/63 (85) I&O Intake and Output 12/20/17 07:00 Intake Total 700 ml Balance 700 ml Intake Oral 700 ml # Voids 4 # Bowel Movements 1 Current Medications: Meds: Current Medications Azithromycin (Zithromax) 500 mg DAILY PO ; Start 12/17/17 at 09:00; Status Cancel Cyclosporine (Restasis) 1 drop BID OU Last administered on 12/20/17at 20:30; Start 12/16/17 at 21:00 Enoxaparin Sodium (Lovenox) 40 mg DAILY SQ Last administered on 12/19/17at 09:47 ; Start 12/17/17 at 09:00; Stop 12/19/17 at 12:56; Status DC Ferrous Sulfate (Feosol) 325 mg DAILY PO Last administered on 12/20/17at 08:03; Start 12/17/17 at 09:00 Gabapentin (Neurontin) 300 mg TID PO Last administered on 12/20/17at 15:20; Start 12/16/17 at 21:00 Acetaminophen/ Hydrocodone Bitart (Lortab 7.5/325) 1 tab Q6HRS PRN PO PAIN Last administered on 12/20/17 11:25; Start 12/16/17 at 17:15 Albuterol/ Ipratropium (Duoneb) 3 ml QID NEB Last administered on 12/20/17 20: 21; Start 12/16/17 at 21:00 Olanzapine (ZyPREXA) 5 mg PRN QHS PRN PO PSYCHOSIS; Start 12/16/17 at 21:00 Polyethylene Glycol (miraLAX) 17 gm DAILY PO ; Start 12/17/17 at 09:00; Stop at 09:00; Status DC Temazepam (Restoril) 15 mg QHS PO Last administered on 12/20/17at 20:30; Start at 21:00 Lactobacillus Rhamnosus (Culturelle) 1 cap BID PO Last administered on at 08:02; Start 12/16/17 at 21:00 Quetiapine Fumarate (SEROquel) 50 mg QHS PO Last administered on 12/19/17at 19: 56; Start 12/16/17 at 17:30 Non-Formulary Medication (Vancomycin/0.9 % Sod Chloride (Vanco 1 Gram/150 ml-0.9 % NaCl)) 1 gm DAILY IV ; Start 12/17/17 at 09:00; Status UNV Vancomycin HCl 1 gm/Sodium Chloride 250 ml @ 250 mls/hr Q24H IV Last administered on 12/17/17at 21:18; Start 12/16/17 at 21:00; Stop 12/17/17 at 21:22 ; Status DC Vancomycin HCl (Vanco Per Pharmacy) 1 each PRN DAILY PRN MC SEE COMMENTS Last administered on 12/18/17at 21:16; Start 12/16/17 at 17:30; Stop 12/19/17 at 07:20 ; Status DC Fentanyl Citrate (Fentanyl 2ml Vial) 50 mcg PRN Q2HR PRN IV PAIN; Start at 17:30 Fentanyl Citrate (Fentanyl 2ml Vial) 25 mcg PRN Q2HR PRN IV pain Last administered on 12/17/17at 22:23; Start 12/16/17 at 17:45 Polyethylene Glycol (miraLAX) 17 gm Q48H PO Last administered on 12/18/17at 08: 37; Start 12/18/17 at 09:00 Piperacillin Sod/ Tazobactam Sod 3.375 gm/Sodium Chloride 50 ml @ 100 mls/hr Q6HRS IV Last administered on 12/16/17at 18:00; Start 12/16/17 at 18:00; Stop at 20:50; Status DC Celecoxib (CeleBREX) 100 mg BIDWMEALS PO Last administered on 12/20/17at 17:12; Start 12/16/17 at 20:00 Piperacillin Sod/ Tazobactam Sod 3.375 gm/Sodium Chloride 50 ml @ 100 mls/hr Q6H IV Last administered on 12/18/17at 19:22; Start 12/17/17 at 02:00; Stop at 21:53; Status DC Vancomycin HCl (Vancomycin Trough Level) 1 each 1X ONCE MC Last administered on 12/17/17at 20:30; Start 12/17/17 at 20:30; Stop 12/17/17 at 20:31; Status DC Vancomycin HCl 1 gm/Sodium Chloride 250 ml @ 250 mls/hr Q12H IV ; Start at 21:30; Stop 12/17/17 at 21:30; Status DC Vancomycin HCl 1 gm/Sodium Chloride 250 ml @ 250 mls/hr Q12H IV Last administered on 12/18/17at 10:37; Start 12/18/17 at 09:00; Stop 12/18/17 at 20:56 ; Status DC Vancomycin HCl (Vancomycin Trough Level) 1 each 1X ONCE MC Last administered on 12/18/17at 20:03; Start 12/18/17 at 20:30; Stop 12/18/17 at 20:31; Status DC Duloxetine HCl (Cymbalta) 30 mg DAILY PO Last administered on 12/20/17at 08:03; Start 12/19/17 at 09:00 Trazodone HCl (Desyrel) 25 mg PRN QHS PRN PO INSOMNIA, MAY REPEAT X1 Last administered on 12/19/17at 21:58; Start 12/18/17 at 21:00 Vancomycin HCl 750 mg/Sodium Chloride 250 ml @ 250 mls/hr Q12H IV ; Start 12/18 at 21:00; Stop 12/18/17 at 21:53; Status DC Vancomycin HCl (Vancomycin Trough Level) 1 each 1X ONCE MC ; Start 12/19/17 at 20:30; Stop 12/19/17 at 20:30; Status DC Amoxicillin/ Clavulanate Potassium (Augmentin 875/ 125mg) 1 tab BID PO Last administered on 12/20/17at 08:03; Start 12/18/17 at 22:00 Active Scripts Active Duoneb 0.5-3(2.5) Mg/3 Ml (Albuterol/Ipratropium) 3 Ml Ampul.neb 3 Ml NEB QID Azithromycin Tablet (Azithromycin) 250 Mg Tablet 500 Mg PO DAILY Reported Vanco 1 Gram/150 ml-0.9% NaCl (Vancomycin/0.9 % Sod Chloride) 1 Gm/150 Ml Plast..bag 1 Gm IV DAILY Restoril (Temazepam) 15 Mg Capsule 1 Cap PO QHS Miralax (Polyethylene Glycol 3350) 17 Gm Powd.pack 1 Packet PO DAILY Culturelle (Lactobacillus Rhamnosus Gg) 1 Each Capsule 1 Each PO BID Ferrous Sulfate 325 Mg Tablet 1 Tab PO DAILY Lovenox (Enoxaparin Sodium) 40 Mg/0.4 Ml Disp.syrin 40 Mg SQ DAILY Restasis (Cyclosporine) 1 Each Droperette 1 Drop EACHEYE BID Gabapentin 300 Mg Capsule 300 Mg PO TID Seroquel (Quetiapine Fumarate) 200 Mg Tablet 2 Tab PO QHS Hydrocodone-Apap 7.5-325 (Hydrocodone Bit/Acetaminophen) 1 Each Tablet 1 Tab PO Q6HRS PRN Zyprexa (Olanzapine) 2.5 Mg Tablet 5 Tab PO QHS I have reviewed the current psychotropics carefully including drug interactions. Risk benefit ratio favors no change other than as noted in my dictated progress note. Diagnosis: Problems: (1) Major depressive disorder, recurrent episode (2) Anxiety disorder SOFÍA PARRA MD Dec 20, 2017 20:34
[2017-12-20] MEDS: QUEtiapine 50 MG TABLET. PO SCH (21:15)
[2017-12-20] MEDS: traZODone 50 MG TABLET. PO PRN (23:16)
[2017-12-21 05:31] VITALS: BP 128/66
[2017-12-21] MEDS: IPRATRPIUM/ALBUTEROL 0.5/2.5MG 3 ML NEBU. NEB SCH ×4 (05:37→20:23)
[2017-12-21] MEDS: cycloSPORINE 0.05% OPTH 1 DROP DROPERETTE OU SCH ×2 (08:49→20:48)
[2017-12-21] MEDS: LACTOBACILLUS RHAMNOSUS GG 1 CAPSULE. PO SCH ×2 (08:49→20:48)
[2017-12-21] MEDS: DULoxetine HCL 30 MG CAPSULE.DR PO SCH (08:49)
[2017-12-21] MEDS: AMOXICILLIN/K CLAV 875/125MG TABLET. PO SCH ×2 (08:49→20:48)
[2017-12-21] MEDS: FERROUS SULFATE 325 MG TABLET. PO SCH (08:50)
[2017-12-21] MEDS: GABAPENTIN 300 MG CAPSULE. PO SCH ×3 (08:50→20:48)
[2017-12-21] MEDS: CELECOXIB 100 MG CAPSULE PO SCH ×2 (08:51→17:07)
--- NOTE | 2017-12-21 10:23 | NUR ---
Swing Bed Nursing Note Patient Handbook for [facility] given to patient. Nursing Problem: Pt admitted to Swing Bed Unit for antibiotics r/t pneumonia, PT/OT strengthening for weakness and weight loss. Pt lives at home alone, family is involved. Cognitive/Behavioral: Pt is A/Ox3. Pt sitting propped up in chair watching TV. Pt is talkative and interactive with staff. Pt is cooperative with assessment and cares.Pt enjoys talking about her children and grandchildren. Pain: Pt c/o no pain at this time. Pt requested PRN pain medication prior to working with PT. K-pad at bedside if needed. Respiratory Status: fine crackles in right middle lobe. Non-prod cough. Pt is on 2-3L O2 via NC continuously. Pt wears home O2. SOA with exertion. HOB is elevated. Duonebs QID. Skin: Thin, fragile/friable. Bruising to extremities. Coccyx intact. Bowel/Bladder Continence: Pt is continent of bowel and bladder. LBM 4/1. ADL Functional Status: Pt requires standby assistance with toileting and uses walker for ADL. Pt feeds self an make needs and wants known. Able to take medications whole, one at a time.
[2017-12-21] MEDS: HYDROcodone/APAP 7.5/325MG 1 TAB TABLET PO PRN ×2 (10:49→18:39)
[2017-12-21 18:29] VITALS: BP 116/58
[2017-12-21] MEDS: TEMAZEPAM 15 MG CAPSULE PO SCH (20:48)
[2017-12-21] MEDS: QUEtiapine 50 MG TABLET. PO SCH (20:48)
[2017-12-21] MEDS: traZODone 50 MG TABLET. PO PRN (22:30)
--- NOTE | 2017-12-21 23:50 | NUR ---
Swing Bed Nursing Note Patient Handbook for [facility] given to patient. Nursing Problem: Pt admitted to Swing Bed Unit for antibiotics r/t pneumonia, PT/OT strengthening for weakness and weight loss. Pt lives at home alone, family is very involved. Cognitive/Behavioral: Pt is A/Ox3. Pt sitting up propped up in chair reading a magazine. Pt with a lot of Easter decoration around her room, even a Candy Easter basket. Pt offers everyone that enters her room some candy. Pt is cooperative with assessment and cares. Pain: Pt denies pain. Pt had PRN Lortab just prior to start of shift. Pt can have Kpad, currently denies need. Respiratory Status: Lung sounds diminished. Non-prod cough. Pt is on 2-3L O2 via NC continuously. Pt wears home O2. SOA with exertion. HOB is elevated. RT tx QID. Skin: Thin, fragile/friable. Bruising to extremities. Coccyx intact. Bowel/Bladder Continence: Pt is continent of bowel and bladder. LBM 4/2. ADL Functional Status: Pt requires standby assistance with toileting and uses walker for ADL. Pt was able to dress herself tonight with set up help only. Pt feeds self and tolerated HS snack well. Able to take medications whole.
[2017-12-22] MEDS: IPRATRPIUM/ALBUTEROL 0.5/2.5MG 3 ML NEBU. NEB SCH ×4 (05:08→22:55)
[2017-12-22 06:00] VITALS: BP 104/59
[2017-12-22] MEDS: DULoxetine HCL 30 MG CAPSULE.DR PO SCH (08:59)
[2017-12-22] MEDS: GABAPENTIN 300 MG CAPSULE. PO SCH ×3 (08:59→20:34)
[2017-12-22] MEDS: cycloSPORINE 0.05% OPTH 1 DROP DROPERETTE OU SCH ×2 (08:59→20:33)
[2017-12-22] MEDS: LACTOBACILLUS RHAMNOSUS GG 1 CAPSULE. PO SCH ×2 (08:59→20:33)
[2017-12-22] MEDS: FERROUS SULFATE 325 MG TABLET. PO SCH (08:59)
[2017-12-22] MEDS: POLYETHYLENE GLYCOL 3350 17 GM PACKET. PO SCH (08:59)
[2017-12-22] MEDS: AMOXICILLIN/K CLAV 875/125MG TABLET. PO SCH ×2 (08:59→20:33)
[2017-12-22] MEDS: CELECOXIB 100 MG CAPSULE PO SCH ×2 (09:15→17:25)
--- NOTE | 2017-12-22 09:19 | PN ---
DATE: 12/20/2017 PSYCHIATRIC PROGRESS NOTE This is a late entry 12/20/2017, covers elements not covered in my initial note 12/20/2017. SUBJECTIVE: I met with the patient evening of 12/20/2017. Overall, the patient states her mood is better, but she still distressed with her sleep. She is on trazodone, but feels she still wakes up in the middle of the night. REVIEW OF SYSTEMS: Positive for some shortness of breath. No CV, , eye system symptoms on review. MENTAL STATUS EXAM: Reasonably oriented. Speech is coherent. She is pleasant, verbal. Abstraction fair, computation somewhat impaired, language function intact. Mood and affect still somewhat anxious, dysphoric at times, but improved. No suicidal or homicidal ideation. LABORATORY DATA: Reviewed. IMPRESSION: Major depressive disorder, worse. Insomnia from psychiatric standpoint. PLAN: Continue Cymbalta 30 mg a day. She is also on Seroquel 50 mg at bedtime. For now, we will continue it, given her ongoing insomnia and anxiety. Restoril is 15 mg at bedtime, trazodone is 25 mg at bedtime p.r.n., may repeat x 1, which we will increase to 50 mg at bedtime p.r.n., january repeat x 1, starting on 12/21/2017. No other change from a psychiatric standpoint. MAN Tani PARRA MD DR: MARILYN/jack JOB#: [id number] / [id number]
[2017-12-22] MEDS: HYDROcodone/APAP 7.5/325MG 1 TAB TABLET PO PRN ×2 (11:24→17:41)
--- NOTE | 2017-12-22 11:29 | NUR ---
Nursing Note: Pain Pt C/O soar throat pain 04/30. Pt temp was 97.6 oral. No redness of throat noted upon exam. No swelling of lymph nodes noted upon palpation. Pt given PRN pain medication. Will notify Dr. Vides during his rounds and continue to monitor
[2017-12-22] MEDS ORDERED: BENZOCAINE/MENTHOL LOZNGE 18'S BOX. PO PRN (17:00)
--- NOTE | 2017-12-22 17:30 | NUR ---
Swing Bed Nursing Note Patient Handbook for [facility] given to patient. Nursing Problem: Pt admitted to Swing Bed Unit for antibiotics r/t pneumonia, PT/OT strengthening for weakness and weight loss. Pt lives at home alone, family is very involved. Cognitive/Behavioral: Pt is A/Ox3. Pt sitting up propped up in chair reading a magazine. Pt with a lot of Easter decoration around her room, even a Candy Easter basket. Pt offers everyone that enters her room some candy. Pt is cooperative with assessment and cares. Pain: Pt reported pain 8/10 related to her throat. PRN Lortab given at 1125 and examined pt ordering Cepacol Lozenges PRN. Respiratory Status: Lung sounds diminished. Non-prod cough. Pt is on 2-3L O2 via NC continuously. Pt wears home O2. SOA with exertion. HOB is elevated. RT tx QID. Skin: Thin, fragile/friable. Bruising to extremities. Coccyx intact. Bowel/Bladder Continence: Pt is continent of bowel and bladder. LBM 4/2. ADL Functional Status: Pt requires standby assistance with toileting and uses walker for ADL. Pt was able to dress herself today with set up help only. Pt feeds self and tolerated meals well. Able to take medications whole.
[2017-12-22 18:14] VITALS: BP 125/74
--- NOTE | 2017-12-22 18:46 | PDOC ---
Exam Note: Maximilian Note: Please also refer to the separate dictated note~for this date of service dictated separately.~Patient seen individually. Discussed the patient with Nursing staff reviewed the chart.~Reviewed interim history and current functioning. Reviewed vital signs,~Labs/ Radiology~and current medications noted below. Continue current treatment with the changes noted in the dictated addendum note Assessment: Vital Signs: Vital Signs Date Time Temp Pulse Resp B/P (MAP) Pulse Ox O2 Delivery O2 Flow Rate FiO2 12/22/17 18:14 97.5 88 20 125/74 (91) 97 Nasal Cannula 12/22/17 17:41 2.0 I&O Intake and Output 12/22/17 07:00 Intake Total 1900 ml Balance 1900 ml Intake Oral 1900 ml # Voids 3 # Bowel Movements 1 Current Medications: Meds: Current Medications Azithromycin (Zithromax) 500 mg DAILY PO ; Start 12/17/17 at 09:00; Status Cancel Cyclosporine (Restasis) 1 drop BID OU Last administered on 12/22/17 08:59; Start 12/16/17 at 21:00 Enoxaparin Sodium (Lovenox) 40 mg DAILY SQ Last administered on 12/19/17at 09:47 ; Start 12/17/17 at 09:00; Stop 12/19/17 at 12:56; Status DC Ferrous Sulfate (Feosol) 325 mg DAILY PO Last administered on 12/22/17 08:59; Start 12/17/17 at 09:00 Gabapentin (Neurontin) 300 mg TID PO Last administered on 12/22/17 12:16; Start 12/16/17 at 21:00 Acetaminophen/ Hydrocodone Bitart (Lortab 7.5/325) 1 tab Q6HRS PRN PO PAIN Last administered on 12/22/17 17:41; Start 12/16/17 at 17:15 Albuterol/ Ipratropium (Duoneb) 3 ml QID NEB Last administered on 12/22/17 15: 34; Start 12/16/17 at 21:00 Olanzapine (ZyPREXA) 5 mg PRN QHS PRN PO PSYCHOSIS; Start 12/16/17 at 21:00 Polyethylene Glycol (miraLAX) 17 gm DAILY PO ; Start 12/17/17 at 09:00; Stop at 09:00; Status DC Temazepam (Restoril) 15 mg QHS PO Last administered on 12/21/17 20:48; Start at 21:00 Lactobacillus Rhamnosus (Culturelle) 1 cap BID PO Last administered on 08:59; Start 12/16/17 at 21:00 Quetiapine Fumarate (SEROquel) 50 mg QHS PO Last administered on 12/21/17 20:48 ; Start 12/16/17 at 17:30 Non-Formulary Medication (Vancomycin/0.9 % Sod Chloride (Vanco 1 Gram/150 ml-0.9 % NaCl)) 1 gm DAILY IV ; Start 12/17/17 at 09:00; Status UNV Vancomycin HCl 1 gm/Sodium Chloride 250 ml @ 250 mls/hr Q24H IV Last administered on 12/17/17 21:18; Start 12/16/17 at 21:00; Stop 12/17/17 at 21:22 ; Status DC Vancomycin HCl (Vanco Per Pharmacy) 1 each PRN DAILY PRN MC SEE COMMENTS Last administered on 12/18/17at 21:16; Start 12/16/17 at 17:30; Stop 12/19/17 at 07:20 ; Status DC Fentanyl Citrate (Fentanyl 2ml Vial) 50 mcg PRN Q2HR PRN IV PAIN; Start at 17:30 Fentanyl Citrate (Fentanyl 2ml Vial) 25 mcg PRN Q2HR PRN IV pain Last administered on 12/17/17at 22:23; Start 12/16/17 at 17:45 Polyethylene Glycol (miraLAX) 17 gm Q48H PO Last administered on 12/22/17 08:59 ; Start 12/18/17 at 09:00 Piperacillin Sod/ Tazobactam Sod 3.375 gm/Sodium Chloride 50 ml @ 100 mls/hr Q6HRS IV Last administered on 12/16/17 18:00; Start 12/16/17 at 18:00; Stop at 20:50; Status DC Celecoxib (CeleBREX) 100 mg BIDWMEALS PO Last administered on 12/22/17 17:25; Start 12/16/17 at 20:00 Piperacillin Sod/ Tazobactam Sod 3.375 gm/Sodium Chloride 50 ml @ 100 mls/hr Q6H IV Last administered on 12/18/17at 19:22; Start 12/17/17 at 02:00; Stop at 21:53; Status DC Vancomycin HCl (Vancomycin Trough Level) 1 each 1X ONCE MC Last administered on 12/17/17at 20:30; Start 12/17/17 at 20:30; Stop 12/17/17 at 20:31; Status DC Vancomycin HCl 1 gm/Sodium Chloride 250 ml @ 250 mls/hr Q12H IV ; Start at 21:30; Stop 12/17/17 at 21:30; Status DC Vancomycin HCl 1 gm/Sodium Chloride 250 ml @ 250 mls/hr Q12H IV Last administered on 12/18/17at 10:37; Start 12/18/17 at 09:00; Stop 12/18/17 at 20:56 ; Status DC Vancomycin HCl (Vancomycin Trough Level) 1 each 1X ONCE MC Last administered on 12/18/17at 20:03; Start 12/18/17 at 20:30; Stop 12/18/17 at 20:31; Status DC Duloxetine HCl (Cymbalta) 30 mg DAILY PO Last administered on 12/22/17at 08:59; Start 12/19/17 at 09:00 Trazodone HCl (Desyrel) 25 mg PRN QHS PRN PO INSOMNIA, MAY REPEAT X1 Last administered on 12/20/17at 23:16; Start 12/18/17 at 21:00; Stop 12/21/17 at 16:40; Status DC Vancomycin HCl 750 mg/Sodium Chloride 250 ml @ 250 mls/hr Q12H IV ; Start 12/18 at 21:00; Stop 12/18/17 at 21:53; Status DC Vancomycin HCl (Vancomycin Trough Level) 1 each 1X ONCE MC ; Start 12/19/17 at 20:30; Stop 12/19/17 at 20:30; Status DC Amoxicillin/ Clavulanate Potassium (Augmentin 875/ 125mg) 1 tab BID PO Last administered on 12/22/17 08:59; Start 12/18/17 at 22:00 Trazodone HCl (Desyrel) 50 mg PRN QHS PRN PO INSOMNIA, MAY REPEAT X1 Last administered on 4/2/18at 22:30; Start 12/21/17 at 16:45 Throat Lozenges (Cepacol Sore Throat Lozenge) 1 wally PRN Q2HR PRN PO SORE THROAT ; Start 12/22/17 at 17:00 Active Scripts Active Duoneb 0.5-3(2.5) Mg/3 Ml (Albuterol/Ipratropium) 3 Ml Ampul.neb 3 Ml NEB QID Azithromycin Tablet (Azithromycin) 250 Mg Tablet 500 Mg PO DAILY Reported Vanco 1 Gram/150 ml-0.9% NaCl (Vancomycin/0.9 % Sod Chloride) 1 Gm/150 Ml Plast..bag 1 Gm IV DAILY Restoril (Temazepam) 15 Mg Capsule 1 Cap PO QHS Miralax (Polyethylene Glycol 3350) 17 Gm Powd.pack 1 Packet PO DAILY Culturelle (Lactobacillus Rhamnosus Gg) 1 Each Capsule 1 Each PO BID Ferrous Sulfate 325 Mg Tablet 1 Tab PO DAILY Lovenox (Enoxaparin Sodium) 40 Mg/0.4 Ml Disp.syrin 40 Mg SQ DAILY Restasis (Cyclosporine) 1 Each Droperette 1 Drop EACHEYE BID Gabapentin 300 Mg Capsule 300 Mg PO TID Seroquel (Quetiapine Fumarate) 200 Mg Tablet 2 Tab PO QHS Hydrocodone-Apap 7.5-325 (Hydrocodone Bit/Acetaminophen) 1 Each Tablet 1 Tab PO Q6HRS PRN Zyprexa (Olanzapine) 2.5 Mg Tablet 5 Tab PO QHS I have reviewed the current psychotropics carefully including drug interactions. Risk benefit ratio favors no change other than as noted in my dictated progress note. Diagnosis: Problems: (1) Major depressive disorder, recurrent episode (2) Anxiety disorder SOFÍA PARRA MD Dec 22, 2017 18:46
[2017-12-22] MEDS: TEMAZEPAM 15 MG CAPSULE PO SCH (20:33)
[2017-12-22] MEDS: traZODone 50 MG TABLET. PO PRN (20:33)
[2017-12-22] MEDS: QUEtiapine 50 MG TABLET. PO SCH (20:33)
--- NOTE | 2017-12-22 21:20 | NUR ---
Swing Bed Nursing Note Patient Handbook for [facility] given to patient. Nursing Problem: Pt admitted to Swing Bed Unit for antibiotics r/t pneumonia, PT/OT strengthening for weakness and weight loss. Pt lives at home alone, family is very involved. Cognitive/Behavioral: Pt is A/Ox3. Smiling and interactive when approached. Sitting up in chair reading a magazine.Pt is cooperative with assessment and cares. Pain: Pt had PRN Lortab just prior to start of shift, reports lower back pain is much improved. Pt can have Kpad, currently denies need. Respiratory Status: Lung sounds diminished. Non-prod cough. Pt is on O2 at 2L via NC. Pt wears home O2. SOA with exertion. HOB is elevated. RT tx QID. Skin: Thin, fragile/friable. Bruising to extremities. Coccyx intact. Bowel/Bladder Continence: Pt is continent of bowel and bladder. LBM 4/2. ADL Functional Status: Pt requires standby assistance with toileting and uses walker for ADL. Pt was able to shower herself and dress for HS with standby assistance only. Pt declined HS snack, but took 240cc orange juice. Able to take medications whole.
[2017-12-23] MEDS: IPRATRPIUM/ALBUTEROL 0.5/2.5MG 3 ML NEBU. NEB SCH ×4 (05:25→20:53)
--- NOTE | 2017-12-23 05:48 | NUR ---
Swing Bed Nursing Note Patient Handbook for [facility] given to patient. Nursing Problem: Pt admitted to Swing Bed Unit for antibiotics r/t pneumonia, PT/OT strengthening for weakness and weight loss. Pt lives at home alone, family is very involved. Cognitive/Behavioral: Pt is A/Ox3. Smiling and interactive when approached. In bwwd resting quietly. Pt is cooperative with assessment and cares. Pain: Denies pain this shift. Rested quielty thoughout the night without S/S of pain or discomfort. Respiratory Status: Lung sounds diminished. Non-prod cough. Pt is on O2 at 2L via NC. Pt wears home O2. SOA with exertion. HOB is elevated. RT tx QID. Skin: Thin, fragile/friable. Bruising to extremities. Coccyx intact. Bowel/Bladder Continence: Pt is continent of bowel and bladder. LBM 4/2. ADL Functional Status: Pt requires standby assistance with toileting and uses walker for ADL. Pt was able to shower herself and dress for HS with standby assistance only. Pt declined HS snack, but took 240cc orange juice. Able to take medications whole.
[2017-12-23 06:13] VITALS: BP 110/64
[2017-12-23] MEDS: DULoxetine HCL 30 MG CAPSULE.DR PO SCH (09:07)
[2017-12-23] MEDS: AMOXICILLIN/K CLAV 875/125MG TABLET. PO SCH ×2 (09:07→20:37)
[2017-12-23] MEDS: LACTOBACILLUS RHAMNOSUS GG 1 CAPSULE. PO SCH ×2 (09:07→20:37)
[2017-12-23] MEDS: CELECOXIB 100 MG CAPSULE PO SCH ×2 (09:07→17:25)
[2017-12-23] MEDS: GABAPENTIN 300 MG CAPSULE. PO SCH ×3 (09:07→20:37)
[2017-12-23] MEDS: FERROUS SULFATE 325 MG TABLET. PO SCH (09:07)
[2017-12-23] MEDS: cycloSPORINE 0.05% OPTH 1 DROP DROPERETTE OU SCH ×2 (09:07→20:37)
[2017-12-23] MEDS: HYDROcodone/APAP 7.5/325MG 1 TAB TABLET PO PRN (09:09)
--- NOTE | 2017-12-23 09:10 | NUR ---
nursing note: PRN pain medication requested by patient prior to working with PT/OT. Patient states that she has pain in her back rates 6.5-7/10 at all times and it intensifies when she works with therapy. Provided PRN Lortab per order and will continue to monitor.
--- NOTE | 2017-12-23 12:52 | NUR ---
Swing Bed Nursing Note Patient Handbook for [facility] given to patient. Nursing Problem: Pt admitted to Swing Bed Unit for antibiotics r/t pneumonia, PT/OT strengthening for weakness and weight loss. Pt lives at home alone, family is very involved. Cognitive/Behavioral: Pt is A/Ox3. Smiling and interactive when approached. Sitting in chair reading a magazine. Pt is cooperative with assessment and cares. Pain: Pt had PRN Lortab at 0909, reports lower back pain that is constantly rated as 6.5-7/10 but intensifies when she works with PT/OT. Pt can have Kpad, currently denies need. Respiratory Status: Lung sounds diminished. Non-prod cough. Pt is on O2 at 2L via NC. Pt wears home O2. SOA with exertion. HOB is elevated. RT tx QID. Skin: Thin, fragile/friable. Bruising to extremities. Coccyx intact. Bowel/Bladder Continence: Pt is continent of bowel and bladder. LBM 4/2. ADL Functional Status: Pt requires standby assistance with toileting and uses walker for ADL. Pt was able to ambulate to meals with standby assistance only. Pt participated in therapy with both PT/OT and feeds self meals in dining area.
[2017-12-23 18:17] VITALS: BP 107/69
--- NOTE | 2017-12-23 18:37 | PDOC ---
Exam Note: Maximilian Note: Please also refer to the separate dictated note~for this date of service dictated separately.~Patient seen individually. Discussed the patient with Nursing staff reviewed the chart.~Reviewed interim history and current functioning. Reviewed vital signs,~Labs/ Radiology~and current medications noted below. Continue current treatment with the changes noted in the dictated addendum note Assessment: Vital Signs: Vital Signs Date Time Temp Pulse Resp B/P (MAP) Pulse Ox O2 Delivery O2 Flow Rate FiO2 12/23/17 18:17 98.0 73 20 107/69 (82) 100 Nasal Cannula 2.0 I&O Intake and Output 12/23/17 07:00 Intake Total 1080 ml Balance 1080 ml Intake Oral 1080 ml # Voids 5 Current Medications: Meds: Current Medications Azithromycin (Zithromax) 500 mg DAILY PO ; Start 12/17/17 at 09:00; Status Cancel Cyclosporine (Restasis) 1 drop BID OU Last administered on 12/23/17 09:07; Start 12/16/17 at 21:00 Enoxaparin Sodium (Lovenox) 40 mg DAILY SQ Last administered on 12/19/17at 09:47 ; Start 12/17/17 at 09:00; Stop 12/19/17 at 12:56; Status DC Ferrous Sulfate (Feosol) 325 mg DAILY PO Last administered on 12/23/17 09:07; Start 12/17/17 at 09:00 Gabapentin (Neurontin) 300 mg TID PO Last administered on 12/23/17 14:07; Start 12/16/17 at 21:00 Acetaminophen/ Hydrocodone Bitart (Lortab 7.5/325) 1 tab Q6HRS PRN PO PAIN Last administered on 12/23/17 09:09; Start 12/16/17 at 17:15 Albuterol/ Ipratropium (Duoneb) 3 ml QID NEB Last administered on 12/23/17 15: 23; Start 12/16/17 at 21:00 Olanzapine (ZyPREXA) 5 mg PRN QHS PRN PO PSYCHOSIS; Start 12/16/17 at 21:00 Polyethylene Glycol (miraLAX) 17 gm DAILY PO ; Start 12/17/17 at 09:00; Stop at 09:00; Status DC Temazepam (Restoril) 15 mg QHS PO Last administered on 12/22/17 20:33; Start at 21:00 Lactobacillus Rhamnosus (Culturelle) 1 cap BID PO Last administered on 09:07; Start 12/16/17 at 21:00 Quetiapine Fumarate (SEROquel) 50 mg QHS PO Last administered on 12/22/17 20:33 ; Start 12/16/17 at 17:30 Non-Formulary Medication (Vancomycin/0.9 % Sod Chloride (Vanco 1 Gram/150 ml-0.9 % NaCl)) 1 gm DAILY IV ; Start 12/17/17 at 09:00; Status UNV Vancomycin HCl 1 gm/Sodium Chloride 250 ml @ 250 mls/hr Q24H IV Last administered on 12/17/17 21:18; Start 12/16/17 at 21:00; Stop 12/17/17 at 21:22 ; Status DC Vancomycin HCl (Vanco Per Pharmacy) 1 each PRN DAILY PRN MC SEE COMMENTS Last administered on 12/18/17 21:16; Start 12/16/17 at 17:30; Stop 12/19/17 at 07:20 ; Status DC Fentanyl Citrate (Fentanyl 2ml Vial) 50 mcg PRN Q2HR PRN IV PAIN; Start at 17:30 Fentanyl Citrate (Fentanyl 2ml Vial) 25 mcg PRN Q2HR PRN IV pain Last administered on 12/17/17 22:23; Start 12/16/17 at 17:45 Polyethylene Glycol (miraLAX) 17 gm Q48H PO Last administered on 12/22/17 08:59 ; Start 12/18/17 at 09:00 Piperacillin Sod/ Tazobactam Sod 3.375 gm/Sodium Chloride 50 ml @ 100 mls/hr Q6HRS IV Last administered on 12/16/17 18:00; Start 12/16/17 at 18:00; Stop at 20:50; Status DC Celecoxib (CeleBREX) 100 mg BIDWMEALS PO Last administered on 12/23/17 17:25; Start 12/16/17 at 20:00 Piperacillin Sod/ Tazobactam Sod 3.375 gm/Sodium Chloride 50 ml @ 100 mls/hr Q6H IV Last administered on 3/30/18at 19:22; Start 12/17/17 at 02:00; Stop at 21:53; Status DC Vancomycin HCl (Vancomycin Trough Level) 1 each 1X ONCE MC Last administered on 12/17/17at 20:30; Start 12/17/17 at 20:30; Stop 12/17/17 at 20:31; Status DC Vancomycin HCl 1 gm/Sodium Chloride 250 ml @ 250 mls/hr Q12H IV ; Start at 21:30; Stop 12/17/17 at 21:30; Status DC Vancomycin HCl 1 gm/Sodium Chloride 250 ml @ 250 mls/hr Q12H IV Last administered on 12/18/17at 10:37; Start 12/18/17 at 09:00; Stop 12/18/17 at 20:56 ; Status DC Vancomycin HCl (Vancomycin Trough Level) 1 each 1X ONCE MC Last administered on 12/18/17at 20:03; Start 12/18/17 at 20:30; Stop 12/18/17 at 20:31; Status DC Duloxetine HCl (Cymbalta) 30 mg DAILY PO Last administered on 12/23/17 09:07; Start 12/19/17 at 09:00 Trazodone HCl (Desyrel) 25 mg PRN QHS PRN PO INSOMNIA, MAY REPEAT X1 Last administered on 12/20/17 23:16; Start 12/18/17 at 21:00; Stop 12/21/17 at 16:40; Status DC Vancomycin HCl 750 mg/Sodium Chloride 250 ml @ 250 mls/hr Q12H IV ; Start 12/18 at 21:00; Stop 12/18/17 at 21:53; Status DC Vancomycin HCl (Vancomycin Trough Level) 1 each 1X ONCE MC ; Start 12/19/17 at 20:30; Stop 12/19/17 at 20:30; Status DC Amoxicillin/ Clavulanate Potassium (Augmentin 875/ 125mg) 1 tab BID PO Last administered on 12/23/17 09:07; Start 12/18/17 at 22:00 Trazodone HCl (Desyrel) 50 mg PRN QHS PRN PO INSOMNIA, MAY REPEAT X1 Last administered on 12/22/17at 20:33; Start 12/21/17 at 16:45 Throat Lozenges (Cepacol Sore Throat Lozenge) 1 wally PRN Q2HR PRN PO SORE THROAT ; Start 12/22/17 at 17:00 Active Scripts Active Duoneb 0.5-3(2.5) Mg/3 Ml (Albuterol/Ipratropium) 3 Ml Ampul.neb 3 Ml NEB QID Azithromycin Tablet (Azithromycin) 250 Mg Tablet 500 Mg PO DAILY Reported Vanco 1 Gram/150 ml-0.9% NaCl (Vancomycin/0.9 % Sod Chloride) 1 Gm/150 Ml Plast..bag 1 Gm IV DAILY Restoril (Temazepam) 15 Mg Capsule 1 Cap PO QHS Miralax (Polyethylene Glycol 3350) 17 Gm Powd.pack 1 Packet PO DAILY Culturelle (Lactobacillus Rhamnosus Gg) 1 Each Capsule 1 Each PO BID Ferrous Sulfate 325 Mg Tablet 1 Tab PO DAILY Lovenox (Enoxaparin Sodium) 40 Mg/0.4 Ml Disp.syrin 40 Mg SQ DAILY Restasis (Cyclosporine) 1 Each Droperette 1 Drop EACHEYE BID Gabapentin 300 Mg Capsule 300 Mg PO TID Seroquel (Quetiapine Fumarate) 200 Mg Tablet 2 Tab PO QHS Hydrocodone-Apap 7.5-325 (Hydrocodone Bit/Acetaminophen) 1 Each Tablet 1 Tab PO Q6HRS PRN Zyprexa (Olanzapine) 2.5 Mg Tablet 5 Tab PO QHS I have reviewed the current psychotropics carefully including drug interactions. Risk benefit ratio favors no change other than as noted in my dictated progress note. Diagnosis: Problems: (1) Major depressive disorder, recurrent episode (2) Anxiety disorder SOFÍA PARRA MD Dec 23, 2017 18:37
[2017-12-23] MEDS: QUEtiapine 50 MG TABLET. PO SCH (20:37)
[2017-12-23] MEDS: TEMAZEPAM 15 MG CAPSULE PO SCH (20:37)
--- NOTE | 2017-12-23 21:19 | PN ---
DATE: 12/22/2017 This late entry 12/22/2017 covers elements not covered in my initial note 12/22/2017. Met with the patient in the evening of 12/22/2017. Discussed with nursing staff, reviewed the chart. Overall, the patient is doing better. Mood is improved, but she still complains of some insomnia. Met with her in her room. REVIEW OF SYSTEMS: Ambulation impaired. No CV, , pulmonary, eye system symptoms on review. MENTAL STATUS EXAM: Reasonably oriented. Speech is coherent. She was talking to a friend on the telephone as I entered the room, but able to appropriately have the friend hang up and said she would call her back. Abstraction fair, computation impaired, language function intact. Mood and affect showing improvement. LABORATORY DATA: Reviewed. IMPRESSION: Major depressive disorder, recurrent. Insomnia. Rest unchanged from initial note. PLAN: Continue current psychotropics mentioned in my initial note. May need to increase trazodone at some point, but I prefer not for now. SOFÍA PARRA MD DR: MARILYN/jack JOB#: [id number] / [id number]
--- NOTE | 2017-12-24 01:19 | NUR ---
Swing Bed Nursing Note Patient Handbook for [facility] given to patient. Nursing Problem: Pt admitted to Swing Bed Unit for antibiotics r/t pneumonia, PT/OT strengthening for weakness and weight loss. Pt lives at home alone, family is very involved. Cognitive/Behavioral: Pt is A/Ox3. Smiling and interactive when approached. Pt in bed watching TV and reading a magazine. Pt is cooperative with assessment and cares. Pain: Pt currently denies any pain or discomfort. Respiratory Status: Lung sounds diminished. Non-prod cough. Pt is on O2 at 2L via NC. Pt wears home O2. SOA with exertion. HOB is elevated. RT tx QID. Skin: Thin, fragile/friable. Bruising to extremities. Coccyx intact. Bowel/Bladder Continence: Pt is continent of bowel and bladder. LBM 4/2. ADL Functional Status: Pt requires standby assistance with toileting and uses walker for ADL. Pt was able to ambulate to meals with standby assistance only. Pt participated in therapy with both PT/OT and feeds self meals in dining area.
[2017-12-24] MEDS: IPRATRPIUM/ALBUTEROL 0.5/2.5MG 3 ML NEBU. NEB SCH ×3 (05:30→16:39)
[2017-12-24 06:29] VITALS: BP 97/47
[2017-12-24] MEDS: POLYETHYLENE GLYCOL 3350 17 GM PACKET. PO SCH (08:15)
[2017-12-24] MEDS: AMOXICILLIN/K CLAV 875/125MG TABLET. PO SCH (08:15)
[2017-12-24] MEDS: GABAPENTIN 300 MG CAPSULE. PO SCH ×2 (08:15→13:13)
[2017-12-24] MEDS: FERROUS SULFATE 325 MG TABLET. PO SCH (08:15)
[2017-12-24] MEDS: DULoxetine HCL 30 MG CAPSULE.DR PO SCH (08:15)
[2017-12-24] MEDS: CELECOXIB 100 MG CAPSULE PO SCH ×2 (08:15→16:55)
[2017-12-24] MEDS: cycloSPORINE 0.05% OPTH 1 DROP DROPERETTE OU SCH (08:15)
[2017-12-24] MEDS: LACTOBACILLUS RHAMNOSUS GG 1 CAPSULE. PO SCH (08:15)
[2017-12-24] MEDS: HYDROcodone/APAP 7.5/325MG 1 TAB TABLET PO PRN (13:18)
[2017-12-24] MEDS ORDERED: BENZ1LOZ48 MM (18:06)
[2017-12-24] MEDS ORDERED: CELE100C PO (18:07)
[2017-12-24] MEDS ORDERED: DULO30CA2 PO (18:08)
[2017-12-24] MEDS ORDERED: TRAZ50TA15 PO (18:08)
--- NOTE | 2017-12-24 18:39 | NUR ---
Discharge Note: EDGARD ORTIZ Discharge instructions and discharge home medications reviewed with Patient and a copy given. All questions have been answered and understanding verbalized. The following instructions and handouts were given: discharge instructions Patient discharged to Home w/services with Family Member via [facility] Scripts for Cymbalta and Trazodone were called in to [facility] in [place].
--- NOTE | 2017-12-24 18:52 | DS ---
DATE OF DISCHARGE: 12/24/2017 HOSPITAL COURSE: The patient is an 87-year-old female patient who was originally admitted on 12/10/2017, with pneumonia and at that time, she was started on Zithromax and Rocephin; however, she did not improve and continued to do poorly, so we switched her to Zosyn and vancomycin, she did reasonably well with that, but she continued to be very weak, deconditioned, and she was discharged to swing bed, to continue the antibiotic and to continue with physical and occupational therapy. She was in fact admitted to swing bed on 12/17/2017, and did extremely well. We switched her to Augmentin 875 mg twice a day and she completed the course of treatment. She achieved all her goals, has been up and about, back to her baseline, and a decision was made to discharge her home with home health. PHYSICAL EXAMINATION: GENERAL: When I saw her today, she was sitting comfortably in her chair, in no apparent respiratory distress, no pallor. She was slightly pale, but no jaundice, cyanosis, or thyromegaly. No jugular venous distension. No limb edema. VITAL SIGNS: Her heart rate was 79, blood pressure was 97/47, temperature was 97.7, respiratory rate was 18, and oxygen saturation was 96% on 2 liters of oxygen. HEAD, EYES, EARS, NOSE AND THROAT: Showed normocephalic, atraumatic. NECK: Supple. HEART: Showed normal first and second heart sounds with no gallop, rub or murmur. CHEST: Clear to auscultation. No crepitation or rhonchi. ABDOMEN: Distended, soft, and nontender. NEUROLOGIC: She is awake, alert, responding appropriately. All cranial nerves intact. She moves all extremities without difficulty. She ambulates with a walker. Her intake over the last 24 hours was 1100, no output was recorded. LABORATORY DATA: Her most recent lab work showed a white cell count of 14,000, hemoglobin 10, hematocrit 30, MCV 94, and platelet count of 612,000. Her most recent chemistry showed a serum sodium 142, potassium 4.6, chloride 105, bicarbonate 33, anion gap of 4, BUN 9, creatinine 0.8, estimated GFR was 68 mL per minute. Her glucose was 90, calcium was 8.8, and magnesium was 1.9. DISCHARGE MEDICATIONS: She will be discharged home to continue on the following medications, trazodone 50 mg at bedtime as needed, duloxetine 30 mg daily, polyethylene glycol 17 g every 48 hours, ferrous sulfate 325 mg daily, temazepam 50 mg at bedtime, olanzapine 5 mg at bedtime, nebulized albuterol and Atrovent 4 times a day, gabapentin 300 mg 3 times a day, cyclosporine 1 drop to both eyes twice a day, Celebrex 100 mg twice a day, quetiapine fumarate 50 mg at bedtime, hydrocodone/APAP 7.5/325 every 6 hours. FINAL DISCHARGE DIAGNOSES: 1. Community-acquired pneumonia involving mostly her right upper lobe. Her white cell count is trending down. Her oxygen requirement is down only to 2 liters by nasal cannula. 2. Normochromic and normocytic anemia with iron studies consistent with anemia of chronic disease. 3. Weight loss; however, her TSH is normal. CT scan of the chest was unremarkable; however, CT scan of the abdomen and pelvis showed circumferential wall thickening of the rectum may be secondary to suboptimal distention; however, colonoscopy recommended to rule out rectal malignancy, sigmoid colon diverticulosis without diverticulitis. 4. Abnormal liver enzymes, improving, they were back to normal. 5. Severe protein-calorie malnutrition with serum albumin of only 2.4 mg/dL insomnia, improving with Seroquel 6. Deep vein thrombosis prophylaxis, we will treat her with heparin, this was switched to Lovenox. RYAN MCCAULEY MD DR: WALKER/jack JOB#: [id number] / [id number]
--- NOTE | 2017-12-24 22:56 | PN ---
DATE: 12/23/2017 This late entry 12/23/2017 covers elements not covered in my initial note 12/23/2017. Met with the patient evening of 12/23/2017 in her room. She states she slept much better the previous evening, little more interactive and appears less depressed. No CV, , pulmonary, eye system symptoms on review. Gait unsteady. MENTAL STATUS EXAM: Reasonably oriented. Speech is coherent, abstraction fair, computation impaired, language function intact, attention span short. Mood and affect appears less depressed. LABORATORY DATA: Reviewed. IMPRESSION: Unchanged from initial note and no change in psychotropics from my initial note. MAN Tani PARRA MD DR: MARILYN/jack JOB#: [id number] / [id number]
== END 2017-12-24 18:42 | disposition home health service (06) | DRG 193 ==
LOC: LND 16:41 → MERGE 16:41 → ICU 16:48 → LND 12-17 04:56
PROVIDERS: ADMIT Internal Medicine; ATTEND Internal Medicine
DX: J18.1 Lobar pneumonia, unspecified organism (principal); E43 Unspecified severe protein-calorie malnutrition; J44.0 Chronic obstructive pulmonary disease with (acute) lower respiratory infection; D63.8 Anemia in other chronic diseases classified elsewhere; F33.9 Major depressive disorder, recurrent, unspecified; R74.8 Abnormal levels of other serum enzymes; G47.00 Insomnia, unspecified; F41.9 Anxiety disorder, unspecified; Z68.21 Body mass index [BMI] 21.0-21.9, adult; Z87.01 Personal history of pneumonia (recurrent); Z80.3 Family history of malignant neoplasm of breast; Z80.0 Family history of malignant neoplasm of digestive organs; Z80.1 Family history of malignant neoplasm of trachea, bronchus and lung; Z90.710 Acquired absence of both cervix and uterus; Z79.899 Other long term (current) drug therapy; Z90.49 Acquired absence of other specified parts of digestive tract
CPT/HCPCS: 36415; 80048; 80202; 83735; 85007; 85025; 94640; J1650; J2543; J3010; J3370; J7050; J7620; 97110; 97112; 97116; 97530; 97535

== ENCOUNTER → 2018-02-09 | Outpatient (CLI) | payer MEDICARE, OTHER ==
[2016-10-02 12:03] VITALS: BP 160/68
[~2018-02-09] MED LIST changes: +BENZ1LOZ48 MM; +CELE100C PO; +DULO30CA2 PO
--- NOTE | 2018-02-09 14:20 | RAD ---
EXAM: Left ankle, 2 views; left foot, 2 views. HISTORY: Fall. COMPARISON: None. FINDINGS: Frontal and lateral views of the left ankle and foot are obtained. There is a healed fracture of the distal fifth metatarsal. There is angulation of the distal third and fourth metatarsals which is likely projectional. There is mild first metatarsal phalangeal spurring. Plantar spur and enthesopathy at the Achilles tendon insertion. The ankle mortise is intact. No osteochondral lesion is seen. IMPRESSION: 1. No acute osseous finding. There is slight angular lesion of the distal third and fourth metatarsals which is likely projectional. There is a healed fracture of the distal fifth metatarsal. 2. Mild first metatarsophalangeal osteoarthritis. 3. Small plantar spur. Electronically signed by: Sharonda Azevedo MD (02/09/2018 2:16 PM) [id number]
== END | disposition home or self-care (01) ==
LOC: PMG 10:08
PROVIDERS: ATTEND Physician Assistant
DX: M19.072 Primary osteoarthritis, left ankle and foot (principal); M76.62 Achilles tendinitis, left leg; Z91.81 History of falling
CPT/HCPCS: 73600; 73620

== ENCOUNTER 2018-02-23 14:08 | Inpatient (IN) | payer MEDICARE, OTHER ==
[~2018-02-23] VITALS: Ht 162.6 cm; Wt 62.8 kg
[2018-02-23] MEDS ORDERED: IPRATRPIUM/ALBUTEROL 0.5/2.5MG 3 ML NEBU. ONE (14:17)
--- NOTE | 2018-02-23 14:24 | PHYS DOC ---
Past History Past Medical History: Depression Past Surgical History: Cholecystectomy Alcohol Use: None Drug Use: None Adult General Chief Complaint Chief Complaint: SOB HPI HPI 87-year-old female presents with 2 day history of increasing shortness of breath. The patient is already on home oxygen at 2 L. She has noticed wheezing and or difficulty breathing last couple days. Today its worse. She was treated for pneumonia a few months ago. She denies fever or chills. She has had a cough , but not much sputum. She denies chest pain or diaphoresis. She has been using albuterol nebulizers at home twice a day. Review of Systems Review of Systems Constitutional: Denies fever or chills [] Eyes: Denies change in visual acuity, redness, or eye pain [] HENT: Denies nasal congestion or sore throat [] Respiratory: Shortness of breath and wheezing [] Cardiovascular: No additional information not addressed in HPI [] GI: Denies abdominal pain, nausea, vomiting, bloody stools or diarrhea [] : Denies dysuria or hematuria [] Musculoskeletal: Denies back pain or joint pain [] Integument: Denies rash or skin lesions [] Neurologic: Denies headache, focal weakness or sensory changes [] Endocrine: Denies polyuria or polydipsia [] All other systems were reviewed and found to be within normal limits, except as documented in this note. Current Medications Current Medications Current Medications Medications (Trade) Dose Ordered Sig/Duane Start Time Stop Time Status Last Admin Dose Admin Albuterol/ Ipratropium (Duoneb) 3 ml STK-MED ONCE 02/23/18 14:17 02/23/18 14:18 DC Allergies Allergies Allergies Coded Allergies Type Severity Reaction Last Updated Verified No Known Drug Allergies 09/29/16 No Physical Exam Physical Exam Constitutional: Well developed, well nourished, no acute distress, non-toxic appearance. [] HENT: Normocephalic, atraumatic, bilateral external ears normal, oropharynx moist, no oral exudates, nose normal. [] Eyes: PERRLA, EOMI, conjunctiva normal, no discharge. [] Neck: Normal range of motion, no tenderness, supple, no stridor. [] Cardiovascular:Heart rate regular rhythm, no murmur [] Lungs & Thorax: Bilateral diffuse expiratory wheezing [] Abdomen: Bowel sounds normal, soft, no tenderness, no masses, no pulsatile masses. [] Skin: Warm, dry, no erythema, no rash. [] Back: No tenderness, no CVA tenderness. [] Extremities: No tenderness, no cyanosis, no clubbing, ROM intact, no edema. [] Neurologic: Alert and oriented X 3, normal motor function, normal sensory function, no focal deficits noted. [] Psychologic: Affect normal, judgement normal, mood normal. [] EKG EKG Sinus tachycardia, rate 106, leftward axis, no ST elevations or depressions.[] Radiology/Procedures Radiology/Procedures Chest, 2 views, 02/23/2018: HISTORY: Shortness of breath Correlation with a CT study from 09/29/2016 demonstrates chronic elevation of the right hemidiaphragm. The heart appears to be within normal limits in size. There is calcific plaquing of the aorta. The pulmonary vascularity is normal. There appears to be mild left basilar atelectasis/infiltrate. The upper lung carr are clear. The pulmonary vascularity is normal. No pleural fluid is evident. A mild upper lumbar vertebral compression fracture is old. There are scattered spurs in the spine. IMPRESSION: 1. Chronic elevation of the right hemidiaphragm. 2. Mild left basilar atelectasis/infiltrate. Electronically signed by: Flaquiot Richter MD (02/23/2018 3:04 PM) [facility][] Course & Med Decision Making Course & Med Decision Making Pertinent Labs and Imaging studies reviewed. (See chart for details) The patient's labs significant for a mildly elevated white count. Her chest x- ray significant for a left sided pneumonia. Given that the patient was admitted within the last 90 days, I will treat this as a potential of care required. I will give him vancomycin and Zosyn in the ED and admit her to the hospital. I discussed the case with Dr. Vides and he has accepted the patient for admission. The patient's lactic acid came back high, we'll order a liter of fluids and recheck labs in a few hours. H&H is stable and comfortable at this time. She has a slightly elevated heart rate with a normal blood pressure. [] Dragon Disclaimer Dragon Disclaimer This electronic medical record was generated, in whole or in part, using a voice recognition dictation system. Departure Departure: Referrals: ISABELLE CLARK (PCP) RODRÍGUEZ SALAZAR DO Feb 23, 2018 14:24
[2018-02-23 14:44] LABS: BASO # 0.1 x10^3/uL (0.0-0.2); BASO % 0 % (0-3); EOS # 0.3 x10^3/uL (0.0-0.7); EOS % 3 % (0-3); HEMATOCRIT 34.8 % (36.0-47.0); HEMOGLOBIN 11.6 g/dL (12.0-15.5); LYMPH % 18 % (24-48); MEAN CORPUSCULAR HEMOGLOBIN 31 pg (25-35); MEAN CORPUSCULAR HGB CONC 33 g/dL (31-37); MEAN CORPUSCULAR VOLUME 92 fL (79-100); MONO # 1.2 x10^3/uL (0.0-1.1); MONO % 11 % (0-9); NEUT # 7.7 x10^3uL (1.8-7.7); NEUT % 68 % (31-73); PLATELET COUNT 282 x10^3/uL (140-400); RED BLOOD COUNT 3.77 x10^6/uL (3.50-5.40); RED CELL DISTRIBUTION WIDTH 14.7 % (11.5-14.5); WHITE BLOOD COUNT 11.3 x10^3/uL (4.0-11.0)
[2018-02-23] MEDS ORDERED: methylPREDNISolone SOD SUCC PF 125 MG/2 ML VIAL. IV ONE (14:45)
[2018-02-23] MEDS ORDERED: IPRATRPIUM/ALBUTEROL 0.5/2.5MG 3 ML NEBU. NEB ONE (14:45)
[2018-02-23 14:56] LABS: ALBUMIN 3.5 g/dL (3.4-5.0); ALBUMIN/GLOBULIN RATIO 1.1 (1.0-1.7); CALCIUM 8.4 mg/dL (8.5-10.1); CREATININE 0.9 mg/dL (0.6-1.0); GFR 59.5; POTASSIUM 4.2 mmol/L (3.5-5.1); TOTAL BILIRUBIN 0.2 mg/dL (0.2-1.0); TOTAL PROTEIN 6.7 g/dL (6.4-8.2)
--- NOTE | 2018-02-23 15:07 | RAD ---
Chest, 2 views, 02/23/2018: HISTORY: Shortness of breath Correlation with a CT study from 09/29/2016 demonstrates chronic elevation of the right hemidiaphragm. The heart appears to be within normal limits in size. There is calcific plaquing of the aorta. The pulmonary vascularity is normal. There appears to be mild left basilar atelectasis/infiltrate. The upper lung carr are clear. The pulmonary vascularity is normal. No pleural fluid is evident. A mild upper lumbar vertebral compression fracture is old. There are scattered spurs in the spine. IMPRESSION: 1. Chronic elevation of the right hemidiaphragm. 2. Mild left basilar atelectasis/infiltrate. Electronically signed by: Flaquito Richter MD (02/23/2018 3:04 PM) [facility]
[2018-02-23] MEDS ORDERED: IV NORMAL SALINE 50ML 50 ML ONE (15:21)
[2018-02-23] MEDS ORDERED: PIPERACILLIN/TAZOBACTAM 4.5 GM VIAL IV ONE (15:21)
[2018-02-23] MEDS ORDERED: PIPERACILLIN/TAZOBACTAM 4.5 GM in IV NORMAL SALINE 50ML 50 ML IV ONE (15:30)
[2018-02-23] MEDS ORDERED: VANCOMYCIN 1.5 GM in IV NORMAL SALINE 500ML 500 ML IV ONE (15:45)
[2018-02-23] MEDS ORDERED: KETOROLAC 30 MG/ML VIAL. IV ONE (16:00)
[2018-02-23] MEDS ORDERED: IV NORMAL SALINE 1,000ML 1,000 ML IV ONE (16:30)
--- NOTE | 2018-02-23 16:43 | NUR ---
The patient, EDGARD ORTIZ, 87 y/o, F admitted by RYAN MCCAULEY MD, was given written information regarding hospital policies, unit procedures and contact persons. Valuables were checked and admission assessment performed. VSS. Pt on 2LNC at all times. Pt resting in bed with no complaints at this time. Lungs are coarse on the left side, right side is diminished. Skin intact. Call light within reach. MRSA swab performed in the ER.
[2018-02-23 16:55] VITALS: BP 119/62
--- NOTE | 2018-02-23 17:10 | EKG ---
[address] [address] Test Date: 2018-02-23 Test Time: 14:29:28 Pat Name: EDGARD ORTIZ Department: Room: Gender: F [employer]: GONZALES : 1930 Requested By: RODRÍGUEZ SALAZAR Order Number: [id number] Reading MD: Measurements Intervals [place] Rate: 106 P: 0 MO: 90 QRS: -28 QRSD: 92 T: 63 QT: 312 QTc: 416 Interpretive Statements SINUS TACHYCARDIA LEFTWARD AXIS NO SPECIFIC ECG ABNORMALITIES RI6.01 No previous ECG available for comparison
[2018-02-23] MEDS ORDERED: BENZOCAINE/MENTHOL LOZNGE 18'S BOX. MM PRN (18:00)
[2018-02-23] MEDS: VANCOMYCIN PER PHARMACY MC PRN (18:40)
--- NOTE | 2018-02-23 18:41 | NUR ---
Pharmacy Vancomycin Dosing Note S:Consulted to monitor and dose vancomycin started 02/23/18. O:EDGARD ORTIZ is a 87 year old F with HCAP . Height: 5 feet, 4 inches Weight: 59.604114 kg [place] Body Weight: Adjusted Body Weight: Dosing Weight: Actual Other Antibiotics: ZOSYN 3.375GM Q8HRS LABS: Last BUN: 9 Last Creatinine: 0.9 Creatinine Clearance: Last WBC: 11.3 Last Platelets: 282 Tmax (past 24 hours): Microbiology: I/O: Drug Levels: Last level: on at Last dose given 02/23/18 at 1558 Vancomycin Dosing: Loading Dose: 1500 mg x1 Dosing Weight: Actual Target Trough: 15-20 A: Based on: P: 1. Begin Vancomycin 1000 mg IV q24h 2. Follow up Trough level on 02/25/18 at 1530 3. Pharmacy will continue to monitor, follow and adjust therapy as needed. JOAN DÍAZ, [facility], 02/23/18 [id number]
[2018-02-23 19:18] VITALS: BP 111/78
[2018-02-23] MEDS: IPRATRPIUM/ALBUTEROL 0.5/2.5MG 3 ML NEBU. NEB SCH (21:00)
[2018-02-23] MEDS: cycloSPORINE 0.05% OPTH 1 DROP DROPERETTE OU SCH (21:38)
[2018-02-23] MEDS: CELECOXIB 100 MG CAPSULE PO SCH (21:39)
[2018-02-23] MEDS: GABAPENTIN 300 MG CAPSULE. PO SCH (21:39)
[2018-02-23] MEDS: LACTOBACILLUS RHAMNOSUS GG 1 CAPSULE. PO SCH (21:39)
[2018-02-23] MEDS: TEMAZEPAM 15 MG CAPSULE PO SCH (21:39)
[2018-02-23] MEDS: methylPREDNISolone SOD SUCC PF 40 MG/ML VIAL. IV SCH (21:40)
[2018-02-23] MEDS: QUEtiapine 100 MG TABLET. PO SCH (21:40)
[2018-02-23] MEDS: OLANZapine 5 MG TABLET PO SCH (21:40)
[2018-02-23] MEDS: PIPERACILLIN/TAZOBACTAM 3.375 GM in IV NORMAL SALINE 50ML 50 ML IV SCH (21:40)
[2018-02-23] MEDS: traZODone 50 MG TABLET. PO PRN (21:51)
[2018-02-23 22:09] VITALS: BP_SYST 111; BP_SYST 129; BP_DIAS 59; BP_DIAS 78
[2018-02-24 04:33] VITALS: BP_SYST 127; BP_SYST 129; BP_DIAS 65
[2018-02-24 05:48] VITALS: BP 97/60
[2018-02-24] MEDS: methylPREDNISolone SOD SUCC PF 40 MG/ML VIAL. IV SCH ×3 (05:55→22:07)
[2018-02-24] MEDS: PIPERACILLIN/TAZOBACTAM 3.375 GM in IV NORMAL SALINE 50ML 50 ML IV SCH ×3 (05:56→22:07)
[2018-02-24] MEDS: IPRATRPIUM/ALBUTEROL 0.5/2.5MG 3 ML NEBU. NEB SCH ×4 (06:05→20:27)
[2018-02-24 06:20] LABS: BASO % 0 % (0-3); EOS % 0 % (0-3); HEMATOCRIT 32.1 % (36.0-47.0); LYMPH # 0.9 x10^3/uL (1.0-4.8); LYMPH % 10 % (24-48); MEAN CORPUSCULAR HEMOGLOBIN 31 pg (25-35); MEAN CORPUSCULAR HGB CONC 34 g/dL (31-37); MEAN CORPUSCULAR VOLUME 91 fL (79-100); MONO # 0.2 x10^3/uL (0.0-1.1); MONO % 2 % (0-9); NEUT # 8.4 x10^3uL (1.8-7.7); NEUT % 88 % (31-73); PLATELET COUNT 271 x10^3/uL (140-400); RED BLOOD COUNT 3.52 x10^6/uL (3.50-5.40); WHITE BLOOD COUNT 9.5 x10^3/uL (4.0-11.0)
[2018-02-24 06:29] LABS: ALBUMIN 3.3 g/dL (3.4-5.0); CALCIUM 8.7 mg/dL (8.5-10.1); CREATININE 0.9 mg/dL (0.6-1.0); GFR 59.5; POTASSIUM 4.5 mmol/L (3.5-5.1); TOTAL BILIRUBIN 0.3 mg/dL (0.2-1.0); TOTAL PROTEIN 6.5 g/dL (6.4-8.2)
[2018-02-24] MEDS: DULoxetine HCL 30 MG CAPSULE.DR PO SCH (08:30)
[2018-02-24] MEDS: GABAPENTIN 300 MG CAPSULE. PO SCH ×3 (08:30→20:51)
[2018-02-24] MEDS: FERROUS SULFATE 325 MG TABLET. PO SCH (08:30)
[2018-02-24] MEDS: CELECOXIB 100 MG CAPSULE PO SCH ×2 (08:30→20:51)
[2018-02-24] MEDS: cycloSPORINE 0.05% OPTH 1 DROP DROPERETTE OU SCH ×2 (08:30→20:52)
[2018-02-24] MEDS: LACTOBACILLUS RHAMNOSUS GG 1 CAPSULE. PO SCH ×2 (08:30→20:51)
[2018-02-24] MEDS: POLYETHYLENE GLYCOL 3350 17 GM PACKET. PO SCH (08:38)
[2018-02-24 11:06] VITALS: BP 109/43
[2018-02-24 11:07] VITALS: BP 109/43
[2018-02-24] MEDS: HYDROcodone/APAP 7.5/325MG 1 TAB TABLET PO PRN ×2 (11:45→20:51)
--- NOTE | 2018-02-24 12:27 | HP ---
ADMIT DATE: 02/23/2018 HISTORY OF PRESENT ILLNESS: The patient is an 87-year-old female patient who came to the Emergency Room with a complaint of shortness of breath that has been going on for the last 3-4 days. The cough is mostly dry, associated with chest tightness; however, she denied any chills, rigors, or fever. She was extensively investigated in the Emergency Room and her lab work showed a mild leukocytosis. Her chest x-ray showed that there appears to be mild left basilar atelectasis/infiltrate. The upper lobe carr are clear. The pulmonary vascularity is normal, no pleural fluid is evident. Mild upper lumbar vertebral compression fracture is old. The patient was admitted with acute respiratory failure and pneumonia. Her lactic acid was slightly elevated at 2.3 and that she has been here about 6 weeks ago. A decision was made to treat her for healthcare-associated pneumonia and was started on IV vancomycin as well as Zosyn together with bronchodilator and IV steroids. PAST MEDICAL HISTORY: Significant for COPD, normochromic normocytic anemia, severe protein-calorie malnutrition. PAST SURGICAL HISTORY: Significant for cholecystectomy, hysterectomy, carpal tunnel release. FAMILY HISTORY: Significant for cancer of the breast, lung, and colon in her family. SOCIAL HISTORY: She lives with her family. She does not smoke, drink alcohol, or do recreational drugs. MEDICATIONS: She is currently on following medications: She is on ipratropium bromide, albuterol sulfate 0.5/2.5 mg 3 mL by nebulizer 4 times a day, ferrous sulfate 325 mg once a day, Celebrex 100 mg twice a day, hydrocodone/APAP 7.5/325 one tablet every 6 hours, gabapentin 300 mg 3 times a day, duloxetine 30 mg daily, trazodone 50 mg at bedtime, olanzapine 5 mg at bedtime, quetiapine fumarate 200 mg, she takes 400 mg at bedtime; temazepam 15 mg at bedtime, Restasis 1 drop to both eyes twice a day, Cepacol sore throat lozenges 1 every 2 hours as needed, polyethylene glycol 17 grams daily p.r.n. for constipation. REVIEW OF SYSTEMS: As per history of present illness. PHYSICAL EXAMINATION: GENERAL: On arrival to the Emergency Room, she was pale, no jaundice or cyanosis. No lymphadenopathy, no thyromegaly. No jugular venous distension. No lower limb edema. VITAL SIGNS: Her heart rate was 103, blood pressure was 118/81, temperature was 98.5, respiratory rate 22, oxygen saturation was 94% on 2 liters of oxygen. HEAD, EYES, EARS, NOSE, AND THROAT: She is normocephalic, atraumatic. NECK: Supple. HEART: Showed normal first and second heart sounds with no gallop, rub, or murmur. CHEST: Shows central trachea, equal bilateral expansion vesicular sounds with bilateral scattered rhonchi, few crepitation on the left side posteriorly. ABDOMEN: Distended, soft, nontender. NEUROLOGIC: She was awake, alert, responding appropriately. Cranial nerves are intact. EXTREMITIES: She moves extremities without difficulty. She ambulates without assistance and assistive device. LABORATORY DATA: Her lab work on admission showed a white cell count of 11,300, hemoglobin 11.6, hematocrit 34.8, MCV 92, and platelet count 282,000 with normal manual differential. Her chemistry showed a serum sodium 137, potassium 4.2, chloride 98, bicarbonate 34, anion gap of 5, BUN 9, creatinine 0.9, estimated GFR was 59 mL per minute. Her glucose 95, calcium was 8.4. Total bilirubin, AST, ALT were normal. Alkaline phosphatase slightly elevated. Total protein 6.7, albumin 3.5. Her lactic acid was 2.3. IMPRESSION AND PLAN: In summary, this is an 87-year-old female patient who was admitted yet again with another episode of pneumonia and chronic obstructive pulmonary disease exacerbation. She has a chronic elevation of the right hemidiaphragm. She was started on IV vancomycin and Zosyn as well as steroids and bronchodilator. We will follow her closely and decide the further management accordingly. Her H and H remained stable and her thrombocytosis has improved, actually now her platelet count came down from 600-271. RYAN MCCAULEY MD DR: WALKER/jack JOB#: [id number] / [id number]
--- NOTE | 2018-02-24 13:10 | PN ---
DATE: 02/24/2018 SUBJECTIVE: The patient is resting, slightly propped up in bed, in no apparent distress. She continued to have cough, is mostly dry. Not feeling well generally, although she is not using any accessory muscles. She is maintaining her oxygen saturation of 94% on 2 liters of oxygen by nasal cannula. OBJECTIVE: GENERAL: When I examined her, she was pale, but no jaundice, cyanosis, or thyromegaly. No jugular venous distention. No limb edema. VITAL SIGNS: Her heart rate was 80, blood pressure was 109/43, temperature was 98.2, respiratory rate was 20, and oxygen saturation was 97%. HEAD, EYES, EARS, NOSE AND THROAT: Normocephalic, atraumatic. NECK: Supple. HEART: Showed normal first and second sounds. No gallop, rub or murmur. CHEST: Clear to auscultation. She has scattered rhonchi and few crepitation mostly in the left side posteriorly. ABDOMEN: Distended, soft, nontender. No guarding or rigidity. No organomegaly. All hernial orifice intact. Bowel sounds normal. NEUROLOGIC: She was awake, alert, responding appropriately. All cranial nerves intact. She moves extremities without difficulty. Her intake was 1280. No output was recorded. LABORATORY DATA: Showed a white cell count 9500, hemoglobin 11, hematocrit 32, MCV 91, and platelet count 271,000. Her chemistry showed a serum sodium 136, potassium 4.5, chloride 99, bicarbonate 31, anion gap of 6, BUN 13, creatinine 0.9, estimated GFR was 59 mL per minute. Her glucose 142, calcium was 8.7. Total bilirubin, AST, ALT, alkaline phosphatase were normal. Total protein 6.5, albumin was 3.3. ASSESSMENT: 1. Healthcare-associated pneumonia for which she is now on IV vancomycin and Zosyn. 2. Chronic obstructive pulmonary disease exacerbation for which she is on bronchodilator and tapering course of steroids. 3. Normochromic normocytic anemia, mild lactic acidosis. RYAN MCCAULEY MD DR: WALKER/jack JOB#: [id number] / [id number]
[2018-02-24] MEDS ORDERED: VANCOMYCIN 1 GM in IV NORMAL SALINE 250ML 250 ML IV SCH (16:00)
[2018-02-24 19:00] VITALS: BP 156/67
--- NOTE | 2018-02-24 20:30 | NUR ---
[facility] calls. Wants to know the latest EKG results. Will call him back when one is completed. Addendum: 02/25/18 at 0120 by CASSIUS JAIMES RN Disregard note was charted on the wrong chart.
[2018-02-24] MEDS: traZODone 50 MG TABLET. PO PRN (20:51)
[2018-02-24] MEDS: QUEtiapine 100 MG TABLET. PO SCH (20:52)
[2018-02-24] MEDS: OLANZapine 5 MG TABLET PO SCH (20:52)
--- NOTE | 2018-02-24 21:10 | NUR ---
EKG results called to [facility] at [facility]. Recommends 2 grams of magnesuim Sulfate IV and another EKG in two hours. Addendum: 02/25/18 at 0120 by CASSIUS JAIMES RN Disregard note was charted on the wrong chart.
[2018-02-24] MEDS: TEMAZEPAM 15 MG CAPSULE PO SCH (21:15)
--- NOTE | 2018-02-24 21:20 | NUR ---
Dr Peewee schuster. Addendum: 02/25/18 at 0120 by CASSIUS JAIMES RN Disregard note was charted on the wrong chart.
[2018-02-24 23:12] VITALS: BP 117/52
--- NOTE | 2018-02-25 00:17 | NUR ---
Latest EKG results called to Josh at [facility]. Recommends to repeat EKG in AM. Addendum: 02/25/18 at 0121 by CASSIUS JAIMES RN Disregard note was charted on the wrong chart.
[2018-02-25 03:00] VITALS: BP 119/68
[2018-02-25] MEDS: HYDROcodone/APAP 7.5/325MG 1 TAB TABLET PO PRN ×2 (04:07→13:10)
[2018-02-25] MEDS: IPRATRPIUM/ALBUTEROL 0.5/2.5MG 3 ML NEBU. NEB SCH ×4 (05:07→20:25)
[2018-02-25] MEDS: PIPERACILLIN/TAZOBACTAM 3.375 GM in IV NORMAL SALINE 50ML 50 ML IV SCH ×3 (05:53→22:11)
[2018-02-25] MEDS: methylPREDNISolone SOD SUCC PF 40 MG/ML VIAL. IV SCH ×3 (06:12→22:11)
[2018-02-25 07:01] VITALS: BP_SYST 120; BP_SYST 95; BP_DIAS 47; BP_DIAS 73
--- NOTE | 2018-02-25 08:00 | NUR ---
pt up for breakfast. crackles noted all lobes. SOA with exertion. states non productive cough. no c/o pain.
[2018-02-25] MEDS: cycloSPORINE 0.05% OPTH 1 DROP DROPERETTE OU SCH ×2 (08:36→21:17)
[2018-02-25] MEDS: GABAPENTIN 300 MG CAPSULE. PO SCH ×3 (08:36→21:17)
[2018-02-25] MEDS: DULoxetine HCL 30 MG CAPSULE.DR PO SCH (08:36)
[2018-02-25] MEDS: FERROUS SULFATE 325 MG TABLET. PO SCH (08:36)
[2018-02-25] MEDS: CELECOXIB 100 MG CAPSULE PO SCH ×2 (08:36→21:17)
[2018-02-25] MEDS: LACTOBACILLUS RHAMNOSUS GG 1 CAPSULE. PO SCH ×2 (08:36→21:17)
[2018-02-25] MEDS: POLYETHYLENE GLYCOL 3350 17 GM PACKET. PO SCH (08:36)
[2018-02-25 12:16] VITALS: BP 114/52
[2018-02-25] MEDS: ENOXAPARIN 40 MG/0.4 ML SYRINGE. SQ SCH (15:00)
[2018-02-25 15:38] LABS: VANC TR 9.9 mcg/mL (10.0-20.0)
[2018-02-25 15:40] VITALS: BP 142/61
[2018-02-25] MEDS ORDERED: VANCOMYCIN 1.25 GM in IV NORMAL SALINE 250ML 250 ML IV SCH (16:00)
[2018-02-25] MEDS: VANCOMYCIN PER PHARMACY MC PRN (16:28)
--- NOTE | 2018-02-25 16:28 | NUR ---
Pharmacy Vancomycin Dosing Note S:Consulted to monitor and dose vancomycin started 02/23/18. O:EDGARD ORTIZ is a 87 year old F with HCAP . Height: 5 feet, 4 inches Weight: 60.488312 kg [place] Body Weight: 54.70 Adjusted Body Weight: 56.66 Dosing Weight: Actual Other Antibiotics: ZOSYN 3.375GM Q8HRS LABS: Last BUN: 13 Last Creatinine: 0.9 Creatinine Clearance: 35.5 Last WBC: 9.5 Last Platelets: 271 Drug Levels: Last Trough level: 9.9 on 02/25/18 at 1530 Last dose given 02/25/18 at 0400 Vancomycin Dosing: Loading Dose: 1500 mg x1 Dosing Weight: Actual Target Trough: 15-20 A: Based on today's trough of 9.9, we will increase the vanco to 1250mg IV q24hrs. P: 1. Increase Vancomycin to 1250 mg IV q24h 2. Follow up trough level on 02/27/18 at 1530 3. Pharmacy will continue to monitor, follow and adjust therapy as needed. SHELL YOUNG RPH 02/25/18 3023
[2018-02-25 18:59] VITALS: BP 153/68
--- NOTE | 2018-02-25 21:05 | PN ---
DATE: 02/25/2018 SUBJECTIVE: The patient is resting slightly propped up in bed, in no apparent distress. She continued to have cough that is nonproductive yet, but generally she looks much better. Her oxygen saturation now 96% on 2 liters of oxygen by nasal cannula. No fever. PHYSICAL EXAMINATION: GENERAL: When I examined her, she was pale, but no jaundice, cyanosis, or thyromegaly. No jugular venous distension. No lower limb edema. VITAL SIGNS: Her heart rate was 77, blood pressure was 95/47, temperature was 98.7, respiratory rate 20, and oxygen saturation was 97% on FiO2 of 2 liters of oxygen by nasal cannula. HEAD, EYES, EARS, NOSE, AND THROAT: Showed normocephalic, atraumatic. NECK: Supple. HEART: Showed normal first and second sounds. No gallop, rub, or murmur. CHEST: Showed central trachea, equal bilateral expansion air entry, scattered rhonchi, could not appreciate any crepitation. ABDOMEN: Distended, soft, nontender. NEUROLOGIC: She is awake, alert, responding appropriately. Cranial nerves intact. She moves extremities without difficulty. She ambulates without assistance or assistive devices. Her intake over the last 24 hours was 1300, no output was recorded. LABORATORY DATA: Her lab work this morning showed a serum sodium of 136, potassium 4.5, chloride 99, bicarbonate 31, anion gap of 6, BUN 13, creatinine 0.9, estimated GFR was 59 mL per minute. Her glucose was 142, calcium was 8.7. Total bilirubin, AST, ALT, alkaline phosphatase were normal. Total protein was 6.5, albumin 3.3. White cell count is 9500, hemoglobin 11, hematocrit 32, MCV 91, and platelet count of 271,000 with normal manual differential. ASSESSMENT: 1. Healthcare-associated pneumonia with left lower lobe infiltrate, currently on IV vancomycin and Zosyn. 2. Chronic obstructive pulmonary disease exacerbation. 3. Acute on chronic hypoxic respiratory failure. 4. Normochromic normocytic anemia. 5. Mild lactic acidosis, resolved. PLAN: To continue with the IV antibiotic. Continue with bronchodilator and steroids. So far, her blood cultures are negative and if they remain negative tomorrow, we will discontinue the vancomycin. RYAN MCCAULEY MD DR: Leeanna JOB#: [id number] / [id number]
[2018-02-25] MEDS: OLANZapine 5 MG TABLET PO SCH (21:17)
[2018-02-25] MEDS: traZODone 50 MG TABLET. PO PRN (21:17)
[2018-02-25] MEDS: TEMAZEPAM 15 MG CAPSULE PO SCH (21:17)
[2018-02-25] MEDS: QUEtiapine 100 MG TABLET. PO SCH (21:31)
[2018-02-25 23:00] VITALS: BP 112/57
[2018-02-26 03:00] VITALS: BP 165/61
[2018-02-26] MEDS: IPRATRPIUM/ALBUTEROL 0.5/2.5MG 3 ML NEBU. NEB SCH ×4 (05:44→20:15)
[2018-02-26 06:21] LABS: BASO % 0 % (0-3); EOS % 0 % (0-3); HEMATOCRIT 30.9 % (36.0-47.0); HEMOGLOBIN 10.5 g/dL (12.0-15.5); LYMPH % 4 % (24-48); MEAN CORPUSCULAR HEMOGLOBIN 31 pg (25-35); MEAN CORPUSCULAR HGB CONC 34 g/dL (31-37); MEAN CORPUSCULAR VOLUME 91 fL (79-100); MONO # 0.7 x10^3/uL (0.0-1.1); MONO % 3 % (0-9); NEUT # 22.7 x10^3uL (1.8-7.7); NEUT % 93 % (31-73); PLATELET COUNT 294 x10^3/uL (140-400); RED BLOOD COUNT 3.38 x10^6/uL (3.50-5.40); WHITE BLOOD COUNT 24.3 x10^3/uL (4.0-11.0)
[2018-02-26] MEDS: methylPREDNISolone SOD SUCC PF 40 MG/ML VIAL. IV SCH ×3 (06:43→21:01)
[2018-02-26 06:44] LABS: CALCIUM 8.4 mg/dL (8.5-10.1); CREATININE 0.8 mg/dL (0.6-1.0); GFR 68.2; POTASSIUM 4.8 mmol/L (3.5-5.1); TOTAL BILIRUBIN 0.2 mg/dL (0.2-1.0); TOTAL PROTEIN 5.9 g/dL (6.4-8.2)
[2018-02-26] MEDS: PIPERACILLIN/TAZOBACTAM 3.375 GM in IV NORMAL SALINE 50ML 50 ML IV SCH ×3 (06:44→21:14)
[2018-02-26 07:02] LABS: % BANDS 3 % (0-9); % LYMPHS 6 % (24-48); % SEGS 91 % (35-66)
[2018-02-26 07:04] LABS: ANISOCYTOSIS SLIGHT; HYPOCHROMIA SLIGHT; PLT ESTIMATE ADEQUATE (ADEQUATE); POLYCHROMASIA SLIGHT; SCHISTOCYTES OCC
[2018-02-26 07:05] LABS: TOXIC GRANULATION SLIGHT
[2018-02-26 07:38] VITALS: BP 134/69
[2018-02-26] MEDS: POLYETHYLENE GLYCOL 3350 17 GM PACKET. PO SCH (08:45)
[2018-02-26] MEDS: DULoxetine HCL 30 MG CAPSULE.DR PO SCH (08:46)
[2018-02-26] MEDS: GABAPENTIN 300 MG CAPSULE. PO SCH ×3 (08:46→21:01)
[2018-02-26] MEDS: FERROUS SULFATE 325 MG TABLET. PO SCH (08:46)
[2018-02-26] MEDS: LACTOBACILLUS RHAMNOSUS GG 1 CAPSULE. PO SCH ×2 (08:46→21:01)
[2018-02-26] MEDS: cycloSPORINE 0.05% OPTH 1 DROP DROPERETTE OU SCH ×2 (08:46→21:01)
[2018-02-26] MEDS: CELECOXIB 100 MG CAPSULE PO SCH ×2 (08:46→21:01)
[2018-02-26] MEDS: HYDROcodone/APAP 7.5/325MG 1 TAB TABLET PO PRN ×3 (08:54→23:29)
[2018-02-26 11:14] VITALS: BP 132/70
[2018-02-26] MEDS: ENOXAPARIN 40 MG/0.4 ML SYRINGE. SQ SCH (14:29)
[2018-02-26 14:31] LABS: BGAS PH 7.38 (7.35-7.45)
--- NOTE | 2018-02-26 14:43 | RAD ---
Exam: AP portable chest History: Chest pain. Comparison: February 23, 2018. Findings: Evaluation of the cardiac silhouette is limited, but is probably within normal limits. Aortic atherosclerosis is seen. There is chronic elevation of the right hemidiaphragm. There is slight blunting of right costophrenic angle, could represent small right pleural effusion. Left lung appears clear. Impression: 1. Chronic elevation of the right hemidiaphragm. 2. Small right pleural effusion. 3. No acute airspace disease identified. Electronically signed by: Frantz Isaac MD (02/26/2018 2:39 PM) [place] [id number]
[2018-02-26 15:34] VITALS: BP 152/80
[2018-02-26] MEDS: BUDESONIDE 0.5 MG/2 ML NEBU NEB SCH (20:15)
[2018-02-26] MEDS: QUEtiapine 100 MG TABLET. PO SCH (21:01)
[2018-02-26] MEDS: OLANZapine 5 MG TABLET PO SCH (21:01)
[2018-02-26] MEDS: MONTELUKAST 10 MG TABLET. PO SCH (21:01)
[2018-02-26] MEDS: TEMAZEPAM 15 MG CAPSULE PO SCH (21:01)
[2018-02-26] MEDS: traZODone 50 MG TABLET. PO PRN (21:01)
--- NOTE | 2018-02-26 21:48 | PN ---
DATE: 02/26/2018 SUBJECTIVE: The patient is sitting comfortably in her recliner in no apparent distress. She continued to complain of shortness of breath and cough that is mostly dry. She has also some hoarseness of voice. She continued to be afebrile, although her white cell count has dramatically risen to 24,000. PHYSICAL EXAMINATION: GENERAL: When I examined her this morning, she was pale, but no jaundice or cyanosis. No lymphadenopathy, no thyromegaly. No jugular venous distension. No lower limb edema. VITAL SIGNS: Her heart rate was 81, blood pressure was 132/70, temperature was 97.7, respiratory rate 22, and oxygen saturation was 97% on 2 liters of oxygen. HEAD, EYES, EARS, NOSE, AND THROAT: Showed normocephalic, atraumatic. NECK: Supple. HEART: Showed normal first and second heart sounds with no gallop, rub, or murmur. CHEST: Shows central trachea, equal bilateral expansion, air entry, vesicular sounds with bilateral scattered rhonchi, much less than before. She has dull percussion noted and absent breath sounds in the right side posteriorly. ABDOMEN: Slightly distended, soft, nontender. No guarding or rigidity. No organomegaly. All hernial orifices intact. Bowel sounds normal. NEUROLOGIC: She was awake, alert, responding appropriately. All cranial nerves intact. She moves her extremities without difficulty. Her intake over the last 24 hours was 600, no output was recorded. LABORATORY DATA: Her lab work this morning showed a white cell count 24,000, hemoglobin 10.5, hematocrit 30.9, MCV 91, and platelet count of 294,000. Her chemistry showed a serum sodium 141, potassium 4.8, chloride 103, bicarbonate 35, anion gap of 3, BUN 17, creatinine 0.8, estimated GFR was 68 mL per minute, glucose 127, calcium was 8.4. Total bilirubin, AST, ALT, alkaline phosphatase were normal. Total protein was 5.9, albumin 3. Her vancomycin trough level was 9.9, which is well within therapeutic range. Her blood cultures are negative over the last 2 days. ASSESSMENT: 1. Healthcare-associated pneumonia, left lower lobe infiltrate, currently on IV vancomycin and Zosyn. Her blood cultures are negative with no growth over the last 2 days and I will discontinue her vancomycin. 2. Chronic obstructive pulmonary disease exacerbation. 3. Acute on chronic hypoxic respiratory failure. 4. Normochromic normocytic anemia. 5. Mild lactic acidosis, resolved. PLAN: My plan is to repeat her chest x-ray and also discontinue vancomycin and add Zithromax and decide on further management accordingly. RYAN MCCAULEY MD DR: WALKER/jack JOB#: [id number] / [id number]
[2018-02-26 22:00] VITALS: BP 160/82
[2018-02-27 05:00] VITALS: BP 191/83
[2018-02-27] MEDS: IPRATRPIUM/ALBUTEROL 0.5/2.5MG 3 ML NEBU. NEB SCH ×4 (05:00→21:21)
[2018-02-27] MEDS: methylPREDNISolone SOD SUCC PF 40 MG/ML VIAL. IV SCH ×3 (05:18→22:23)
[2018-02-27] MEDS: PIPERACILLIN/TAZOBACTAM 3.375 GM in IV NORMAL SALINE 50ML 50 ML IV SCH ×3 (05:18→22:23)
[2018-02-27 06:18] LABS: BASO % 0 % (0-3); EOS % 0 % (0-3); HEMATOCRIT 30.1 % (36.0-47.0); LYMPH # 1.1 x10^3/uL (1.0-4.8); LYMPH % 6 % (24-48); MEAN CORPUSCULAR HEMOGLOBIN 31 pg (25-35); MEAN CORPUSCULAR HGB CONC 33 g/dL (31-37); MEAN CORPUSCULAR VOLUME 93 fL (79-100); MONO # 0.6 x10^3/uL (0.0-1.1); MONO % 3 % (0-9); NEUT # 16.9 x10^3uL (1.8-7.7); NEUT % 91 % (31-73); PLATELET COUNT 303 x10^3/uL (140-400); RED BLOOD COUNT 3.24 x10^6/uL (3.50-5.40); RED CELL DISTRIBUTION WIDTH 15.2 % (11.5-14.5); WHITE BLOOD COUNT 18.6 x10^3/uL (4.0-11.0)
[2018-02-27 06:25] LABS: ALBUMIN 2.9 g/dL (3.4-5.0); CALCIUM 8.3 mg/dL (8.5-10.1); GFR 52.7; POTASSIUM 4.4 mmol/L (3.5-5.1); TOTAL BILIRUBIN 0.3 mg/dL (0.2-1.0); TOTAL PROTEIN 5.8 g/dL (6.4-8.2)
[2018-02-27 08:35] VITALS: BP 177/75
[2018-02-27] MEDS: cycloSPORINE 0.05% OPTH 1 DROP DROPERETTE OU SCH ×2 (09:21→20:45)
[2018-02-27] MEDS: CELECOXIB 100 MG CAPSULE PO SCH ×2 (09:21→20:46)
[2018-02-27] MEDS: AZITHROMYCIN 500 MG in IV NORMAL SALINE 250ML 250 ML IV SCH (09:21)
[2018-02-27] MEDS: POLYETHYLENE GLYCOL 3350 17 GM PACKET. PO SCH (09:22)
[2018-02-27] MEDS: FERROUS SULFATE 325 MG TABLET. PO SCH (09:22)
[2018-02-27] MEDS: GABAPENTIN 300 MG CAPSULE. PO SCH ×3 (09:22→20:46)
[2018-02-27] MEDS: DULoxetine HCL 30 MG CAPSULE.DR PO SCH (09:22)
[2018-02-27] MEDS: LACTOBACILLUS RHAMNOSUS GG 1 CAPSULE. PO SCH ×2 (09:22→20:46)
[2018-02-27] MEDS: BUDESONIDE 0.5 MG/2 ML NEBU NEB SCH ×2 (10:42→21:21)
--- NOTE | 2018-02-27 10:45 | NUR ---
Transfer Note: Patient received form ICU. Report given by Tonia CARRERO. This nurse agrees with Tonia RN's assessment. Patient is calm and cooperative upon admission patient is resting comfortably in bedside chair. Family is at bedside.
[2018-02-27] MEDS: HYDROcodone/APAP 7.5/325MG 1 TAB TABLET PO PRN ×2 (11:17→17:56)
[2018-02-27 11:20] VITALS: BP 151/68
[2018-02-27] MEDS: ENOXAPARIN 40 MG/0.4 ML SYRINGE. SQ SCH (14:13)
[2018-02-27 15:20] VITALS: BP 154/75
[2018-02-27 19:30] VITALS: BP 183/81
[2018-02-27] MEDS: TEMAZEPAM 15 MG CAPSULE PO SCH (20:45)
[2018-02-27] MEDS: QUEtiapine 100 MG TABLET. PO SCH (20:45)
[2018-02-27] MEDS: MONTELUKAST 10 MG TABLET. PO SCH (20:46)
[2018-02-27] MEDS: OLANZapine 5 MG TABLET PO SCH (20:46)
[2018-02-28 00:09] VITALS: BP 144/81
--- NOTE | 2018-02-28 04:30 | PN ---
DATE: 02/27/2018 SUBJECTIVE: The patient is resting, slightly propped up in bed, in no apparent distress. On questioning her, she continued to have cough and chest tightness; however, she is lying almost flat in bed. She does not use her accessory muscles in tripod position. PHYSICAL EXAMINATION: GENERAL: When I examined her, she was pale, but no jaundice or cyanosis. No lymphadenopathy, no thyromegaly. No jugular venous distension. No lower limb edema. VITAL SIGNS: Her heart rate was 83, blood pressure was 151/68, temperature was 97.3, respiratory rate was 16, and oxygen saturation was 97% on 2 liters of oxygen. HEAD, EYES, EARS, NOSE AND THROAT: Showed normocephalic, atraumatic. NECK: Supple. HEART: Showed normal first and second heart sounds. No gallop, rub or murmur. CHEST: Showed central trachea, equal bilateral expansion, air entry, vesicular sounds with scattered rhonchi bilaterally. I could not appreciate any crepitation. She has a dull percussion noted and absent breath sounds on the right side posteriorly. ABDOMEN: Slightly distended, soft, nontender. No guarding or rigidity. No organomegaly. Hernial orifice intact. Bowel sounds normal. NEUROLOGIC: She is awake, alert, responding appropriately. Cranial nerves intact. She moves extremities without difficulty. She ambulates with a walker. Her intake over the last 24 hours was ____. No output was recorded. LABORATORY DATA: Showed a white cell count is down to 18,600, hemoglobin 10, hematocrit 30, MCV 93, and platelet count 303,000. Her chemistry showed a serum sodium 143, potassium 4.4, chloride 102, bicarbonate 34, anion gap of 7, BUN 17, creatinine 1, estimated GFR was 53 mL per minute. Her glucose was 162, calcium was 8.3. Total bilirubin, AST, ALT, alkaline phosphatase were normal. Total protein was 5.8, albumin 2.9. ASSESSMENT AND PLAN: 1. Healthcare-associated pneumonia, left lower lobe infiltrate, currently on IV vancomycin and Zosyn. Her blood culture so far negative with no growth over the last 2 days. I discontinued the vancomycin. I did add Zithromax in case ____ not covering the atypical organisms. 2. Chronic obstructive pulmonary disease exacerbation. 3. Acute on chronic hypoxic respiratory failure. 4. Normochromic normocytic anemia. 5. Lactic acidosis, resolving. Plan is to continue with current plan of management. The patient seems to be clinically doing much better. She is not using any accessory muscles. The cough is much less and her white cell count is trending down. RYAN MCCAULEY MD DR: WALKER/jack JOB#: [id number] / [id number]
[2018-02-28] MEDS: methylPREDNISolone SOD SUCC PF 40 MG/ML VIAL. IV SCH ×3 (05:10→21:18)
[2018-02-28] MEDS: PIPERACILLIN/TAZOBACTAM 3.375 GM in IV NORMAL SALINE 50ML 50 ML IV SCH ×3 (05:10→21:20)
[2018-02-28 05:31] VITALS: BP 176/77
[2018-02-28] MEDS: IPRATRPIUM/ALBUTEROL 0.5/2.5MG 3 ML NEBU. NEB SCH ×4 (06:24→20:51)
[2018-02-28 07:13] LABS: HEMATOCRIT 31.3 % (36.0-47.0); HEMOGLOBIN 10.5 g/dL (12.0-15.5); RED BLOOD COUNT 3.4 x10^6/uL (3.50-5.40); WHITE BLOOD COUNT 15.9 x10^3/uL (4.0-11.0)
[2018-02-28 07:25] LABS: CALCIUM 8.7 mg/dL (8.5-10.1); CREATININE 0.8 mg/dL (0.6-1.0); GFR 68.2; POTASSIUM 4.8 mmol/L (3.5-5.1)
[2018-02-28] MEDS: GABAPENTIN 300 MG CAPSULE. PO SCH ×3 (09:09→21:17)
[2018-02-28] MEDS: DULoxetine HCL 30 MG CAPSULE.DR PO SCH (09:09)
[2018-02-28] MEDS: LACTOBACILLUS RHAMNOSUS GG 1 CAPSULE. PO SCH ×2 (09:09→21:17)
[2018-02-28] MEDS: POLYETHYLENE GLYCOL 3350 17 GM PACKET. PO SCH (09:10)
[2018-02-28] MEDS: FERROUS SULFATE 325 MG TABLET. PO SCH (09:10)
[2018-02-28] MEDS: cycloSPORINE 0.05% OPTH 1 DROP DROPERETTE OU SCH ×2 (09:10→21:17)
[2018-02-28] MEDS: AZITHROMYCIN 500 MG in IV NORMAL SALINE 250ML 250 ML IV SCH (09:11)
[2018-02-28] MEDS: CELECOXIB 100 MG CAPSULE PO SCH ×2 (09:28→21:17)
[2018-02-28] MEDS: BUDESONIDE 0.5 MG/2 ML NEBU NEB SCH ×2 (09:42→20:51)
[2018-02-28 11:00] VITALS: BP 185/47
[2018-02-28] MEDS: ENOXAPARIN 40 MG/0.4 ML SYRINGE. SQ SCH (14:11)
[2018-02-28] MEDS ORDERED: amLODIPine BESYLATE 5 MG TABLET PO ONE (14:30)
[2018-02-28 15:26] VITALS: BP 164/85
[2018-02-28] MEDS: HYDROcodone/APAP 7.5/325MG 1 TAB TABLET PO PRN (18:29)
--- NOTE | 2018-02-28 18:34 | NUR ---
Pt did well today. Took shower on own, has been sitting up most of the day. ST/SA with BBB and occassional PVCs. Lung sounds a little improved from yesterday. Possibly swing patient tomorrow. Will continue to monitor.
[2018-02-28 19:45] VITALS: BP 146/76
[2018-02-28] MEDS: MONTELUKAST 10 MG TABLET. PO SCH (21:17)
[2018-02-28] MEDS: OLANZapine 5 MG TABLET PO SCH (21:17)
[2018-02-28] MEDS: TEMAZEPAM 15 MG CAPSULE PO SCH (21:17)
[2018-02-28] MEDS: QUEtiapine 100 MG TABLET. PO SCH (21:17)
[2018-02-28 23:01] VITALS: BP 144/72
[2018-03-01] MEDS: methylPREDNISolone SOD SUCC PF 40 MG/ML VIAL. IV SCH ×2 (05:40→13:40)
[2018-03-01] MEDS: PIPERACILLIN/TAZOBACTAM 3.375 GM in IV NORMAL SALINE 50ML 50 ML IV SCH ×2 (05:41→13:40)
[2018-03-01 05:45] VITALS: BP 146/74
[2018-03-01 06:34] LABS: HEMATOCRIT 31.4 % (36.0-47.0); HEMOGLOBIN 10.7 g/dL (12.0-15.5); RED BLOOD COUNT 3.42 x10^6/uL (3.50-5.40); WHITE BLOOD COUNT 15.1 x10^3/uL (4.0-11.0)
[2018-03-01] MEDS: IPRATRPIUM/ALBUTEROL 0.5/2.5MG 3 ML NEBU. NEB SCH ×3 (06:55→15:23)
--- NOTE | 2018-03-01 06:58 | PN ---
DATE: 02/28/2018 SUBJECTIVE: The patient is sitting comfortably in her recliner in no apparent distress. She apparently managed to have a shower today on her own according to her and feeling generally much better. Her hoarseness has disappeared and her audible wheezing has also disappeared. PHYSICAL EXAMINATION: GENERAL: When I examined her, she looked pale, but no jaundice or cyanosis. No lymphadenopathy, no thyromegaly. No jugular venous distention. No lower limb edema. VITAL SIGNS: Her heart rate was 76, blood pressure 176/77, temperature was 98.1, respiratory rate was 18 and oxygen saturation was 95% on 2 liters of oxygen by nasal cannula. HEAD, EYES, EARS, NOSE AND THROAT: Showed normocephalic, atraumatic. NECK: Supple. HEART: Showed normal first and second heart sounds with no gallop, rub or murmur. CHEST: Shows central trachea, equal bilateral expansion, air entry, vesicular sounds anteriorly on the posterior side. There is dull percussion noted and absent breath sounds in the right side posteriorly. A very few scattered rhonchi. I could not appreciate any crepitation. ABDOMEN: Slightly distended, soft, nontender. NEUROLOGIC: She is awake, alert, responding appropriately. All her cranial nerves intact. She moves extremities without difficulty. Her intake over the last 24 hours was 1100, no output was recorded. LABORATORY DATA: As of this morning, her white cell count is down to 15,900, hemoglobin 10, hematocrit 31, MCV 92, and platelet count of 337,000. Her chemistry showed a serum sodium 140, potassium 4.8, chloride 100, bicarbonate 34, anion gap of 6, BUN 17, creatinine 0.8, estimated GFR was 68 mL per minute. Her glucose 129, calcium was 8.7. ASSESSMENT: 1. Healthcare-associated pneumonia, treated initially with IV vancomycin and Zosyn. Her blood cultures were negative, so we discontinued her vancomycin. I did add Zithromax in case we are not covering the atypical organisms and she did actually responded very well to that. 2. Chronic obstructive pulmonary disease exacerbation. 3. Acute on chronic hypoxic respiratory failure. 4. Normochromic normocytic anemia. 5. Mild lactic acidosis, resolved. PLAN: To continue with current antibiotic. We will evaluate her tomorrow and we will decide to swing care or discharge her home. RYAN MCCAULEY MD DR: Leeanna JOB#: [id number] / [id number]
[2018-03-01] MEDS: FERROUS SULFATE 325 MG TABLET. PO SCH (09:00)
[2018-03-01] MEDS: DULoxetine HCL 30 MG CAPSULE.DR PO SCH (09:00)
[2018-03-01] MEDS: CELECOXIB 100 MG CAPSULE PO SCH (09:00)
[2018-03-01] MEDS: POLYETHYLENE GLYCOL 3350 17 GM PACKET. PO SCH (09:00)
[2018-03-01] MEDS: LACTOBACILLUS RHAMNOSUS GG 1 CAPSULE. PO SCH (09:00)
[2018-03-01] MEDS: cycloSPORINE 0.05% OPTH 1 DROP DROPERETTE OU SCH (09:00)
[2018-03-01] MEDS: GABAPENTIN 300 MG CAPSULE. PO SCH ×2 (09:00→13:47)
[2018-03-01] MEDS: AZITHROMYCIN 500 MG in IV NORMAL SALINE 250ML 250 ML IV SCH (09:00)
[2018-03-01] MEDS: BUDESONIDE 0.5 MG/2 ML NEBU NEB SCH (09:49)
[2018-03-01 11:00] VITALS: BP 142/76
[2018-03-01] MEDS ORDERED: AMOX1TAB58 PO (11:59)
[2018-03-01] MEDS ORDERED: AZIT250T PO (12:08)
[2018-03-01] MEDS: ENOXAPARIN 40 MG/0.4 ML SYRINGE. SQ SCH (13:40)
[2018-03-01] MEDS: HYDROcodone/APAP 7.5/325MG 1 TAB TABLET PO PRN (13:55)
--- NOTE | 2018-03-01 18:15 | NUR ---
Discharge Note: [facility] ORTI[facility] Discharge instructions and discharge home medications reviewed with Patient and a copy given. All questions have been answered and understanding verbalized. The following instructions and handouts were given: education regarding pneumonia, azithromycin, augmentin, prednisone; discharge instructions; prescriptions for prednisone, augementin, and zithromax given to pt Discontinued lines and drains: Peripheral IV intact. Patient discharged to Home w/services withFamily Membervia Wheelchair
--- NOTE | 2018-03-01 18:19 | NUR ---
Pt given discharge instructions and prescriptions; waiting for family to come pick her up.
--- NOTE | 2018-03-01 22:38 | DS ---
DATE OF DISCHARGE: 03/01/2018 HOSPITAL COURSE: The patient is an 87-year-old female patient who was admitted again on 02/24/2018 with complaint of shortness of breath, cough that was mostly dry, associated with chest tightness and wheezing that started about 3-4 days prior to admission. She was extensively investigated in the Emergency Room and her lab work showed that she has some mild leukocytosis. Chest x-ray appears to be mild left basal atelectasis/infiltrate. ____ are clear and she was basically admitted and treated for healthcare-associated pneumonia given that she was here about 6 weeks ago. I did start her on vancomycin and Zithromax. However, her white cell count went up higher, so I discontinued the vancomycin and added Zithromax. Continued bronchodilator and Solu-Medrol. Although the patient was slow to respond, she eventually did well. PHYSICAL EXAMINATION: GENERAL: When I saw her today, she was sitting slightly propped up in bed, in no apparent distress. She apparently has been up and about, walked with a walker, and felt desired to be discharged. When I examined her, she was pale, somewhat cachectic, no jaundice, cyanosis, or thyromegaly. No jugular venous distension. No lower limb edema. VITAL SIGNS: Her heart rate was 100, blood pressure was 142/76, temperature was 97.4, respiratory rate was 20, and oxygen saturation was 92% on 2 liters of oxygen. HEAD, EYES, EARS, NOSE AND THROAT: Showed normocephalic, atraumatic. NECK: Supple. HEART: Showed normal first and second heart sounds. No gallop, rub or murmur. CHEST: Shows central trachea, equal bilateral expansion, air entry. First and second sounds. No crepitation or rhonchi. ABDOMEN: Distended, soft, nontender. NEUROLOGIC: She is awake, alert, responding appropriately. All cranial nerves intact. She moves extremities without difficulty. She ambulates with a walker. Her intake was 2400, no output was recorded. LABORATORY DATA: As of this morning, her white cell count is down to 15,000, hemoglobin 10.7, hematocrit 31, MCV 92, and platelet count 360,000. Her serum sodium was 140, potassium 4.8, chloride 100, bicarbonate 34, anion gap of 6, BUN 17, creatinine 0.8, estimated GFR was 68 mL per minute. Her glucose 129 and calcium was 8.7. DISCHARGE MEDICATIONS: She was discharged home with home health to continue on amoxicillin/clavulanic acid or Augmentin 500/125 one tablet twice a day for 5 more days and also Zithromax 250 mg once a day for 5 more days. She was discharged on all her other home medication. FINAL DISCHARGE DIAGNOSES: 1. Include healthcare-associated pneumonia, resolved. 2. Chronic obstructive pulmonary disease exacerbation. 3. Acute on chronic hypoxic respiratory failure. 4. Normochromic normocytic anemia. ____ RYAN MCCAULEY MD DR: WALKER/jack JOB#: [id number] / [id number]
== END 2018-03-01 18:34 | disposition home health service (06) | DRG 193 ==
LOC: ER 14:08 → ICU 15:20 → 1 SOUTH 02-27 10:45
PROVIDERS: ADMIT Internal Medicine; ATTEND Internal Medicine
DX: J18.9 Pneumonia, unspecified organism (principal); J96.21 Acute and chronic respiratory failure with hypoxia; E87.2 Acidosis; J44.1 Chronic obstructive pulmonary disease with (acute) exacerbation; J44.0 Chronic obstructive pulmonary disease with (acute) lower respiratory infection; M48.56XA Collapsed vertebra, not elsewhere classified, lumbar region, initial encounter for fracture; J98.11 Atelectasis; Y95 Nosocomial condition; D64.9 Anemia, unspecified; F32.9 Major depressive disorder, single episode, unspecified; Z80.3 Family history of malignant neoplasm of breast; Z90.710 Acquired absence of both cervix and uterus; Z99.81 Dependence on supplemental oxygen; Z90.49 Acquired absence of other specified parts of digestive tract; Z79.899 Other long term (current) drug therapy
CPT/HCPCS: 36415; 71045; 71046; 80048; 80053; 80202; 82803; 83605; 84484; 85007; 85025; 85027; 87040; 87641; 93005; 94640; 96365; 96368; 96375; J0456; J1650; J1885; J2543; J2920; J2930; J3370; J7040; J7050; J7620; J7626; 99285-25

== ENCOUNTER → 2018-03-10 | Outpatient (CLI) | payer MEDICARE, OTHER ==
[2018-03-01 11:00] VITALS: BP 142/76
[~2018-03-10] MED LIST changes: +AMOX1TAB58 PO; +AZIT250T PO
--- NOTE | 2018-03-10 16:05 | RAD ---
CHEST PA LATERAL Clinical indications: PNEUMONIA and shortness of breath. COMPARISON: February 23, 2018 and February 26, 2018. Findings: Again seen is severe chronic elevation of the right hemidiaphragm. The right lateral costophrenic angle is better visualized in today's study consistent with resolution of previously seen right-sided pleural effusion. Hiatal hernia is evident. Chronic atelectasis of the medial left lung base is seen. No new lung infiltrate or pulmonary edema is seen. No pneumothorax is seen. The heart size and mediastinum are stable. Mild compression fracture of the superior endplate of T12 is again evident and unchanged. IMPRESSION: No new radiographic abnormality. Electronically signed by: Vladimir Kee MD (03/10/2018 4:01 PM) [id number]
== END | disposition home or self-care (01) ==
LOC: PMG 14:34
PROVIDERS: ATTEND Physician Assistant
DX: M48.54XD Collapsed vertebra, not elsewhere classified, thoracic region, subsequent encounter for fracture with routine healing (principal); J98.6 Disorders of diaphragm; J98.11 Atelectasis; K44.9 Diaphragmatic hernia without obstruction or gangrene
CPT/HCPCS: 71046